=== PATIENT | female | born 1940 | race Caucasian/White ===

== ENCOUNTER 2018-10-04 19:39 | Inpatient (IN) | payer MEDICAID, MEDICARE ==
[~2018-10-04] VITALS: Ht 165.1 cm; Wt 66.2 kg
[~2018-10-04 19:39] MED LIST: BENA20TA9 PO; CIPR-262 PO; DIVA-78 PO; FLUC100T8 PO; INSU100V7 SQ; METF1000 PO; RISP1TAB7 PO; SITA50TA PO
--- NOTE | 2018-10-04 19:57 | NUR ---
pt bib ra. comp of 'having abd pain, and my head feels weird". 911 called by neighbor who stated "pt comp of not feeling herself". bs noted elevated upon arrival. aware. awaiting orders.
[2018-10-04] MEDS ORDERED: IV NS 0.9% 1,000 ML BAG IV ONE ×2 (20:00→22:30)
[2018-10-04 20:13] LABS: BASOPHILS % (AUTO) 0.2 % (0.0-2.0); HEMATOCRIT 34 % (33-45); HEMOGLOBIN 10.9 g/dL (11.5-14.8); LYMPHOCYTES # (AUTO) 0.1 /CMM (0.8-4.8); LYMPHOCYTES % (AUTO) 1.1 % (20.0-44.0); MEAN CORPUSCULAR HGB CONC 32 g/dl (31.0-36.0); MEAN CORPUSCULAR VOLUME 89 fL (82-100); MONOCYTES # (AUTO) 0.3 /CMM (0.1-1.30); MONOCYTES % (AUTO) 4.3 % (2.0-12.0); NEUTROPHILS # (AUTO) 7.2 /CMM (1.8-8.9); NEUTROPHILS % (AUTO) 94.4 % (43.0-81.0); PLATELET COUNT (AUTO) 80 /CMM (150-450); RED BLOOD CELL COUNT(AUTO) 3.81 MIL/uL (4.0-5.2); WHITE BLOOD COUNT (AUTO) 7.6 K/uL (4.3-11.0)
[2018-10-04 20:37] LABS: ALANINE AMINOTRANSFERASE 14 U/L (12-78); ALKALINE PHOSPHATASE 56 U/L (46-116); ASPARTATE AMINOTRANSFERASE 8 U/L (15-37); BILIRUBIN,DIRECT 0.2 mg/dL (0.0-0.2); BILIRUBIN,TOTAL 0.8 mg/dL (0.2-1.0); CALCIUM, SERUM 8.9 mg/dL (8.5-10.1); CARBON DIOXIDE 21 mmol/L (21-32); CHLORIDE 99 mmol/L (98-107); CREATININE 2.1 mg/dL (0.6-1.3); LIPASE 101 U/L (73-393); POTASSIUM 5.8 mmol/L (3.5-5.1); SODIUM SERUM 132 mmol/L (136-145); TOTAL PROTEIN, SERUM 6.2 g/dL (6.4-8.2); UREA NITROGEN, BLOOD 35 mg/dL (7-18)
[2018-10-04 20:41] LABS: GLUCOSE 608 mg/dL (74-106)
--- NOTE | 2018-10-04 21:05 | NUR ---
labs collected and sent for analysis. VSS pt alert and compliant.
[2018-10-04 21:18] LABS: APPEARANCE,URINE Cloudy (CLEAR); BILIRUBIN,URINE SMALL (NEGATIVE); BLOOD, URINE Moderate Ery/uL (NEGATIVE); COLOR,URINE Yellow (YELLOW); KETONES,URINE Trace (NEGATIVE); LEUKOCYTE ESTERASE ,URINE Negative (NEGATIVE); NITRITE, URINE Negative (NEGATIVE); PROTEIN,URINE 30 mg/dl (NEGATIVE); UGLUCOSE 500 MG/DL mg/dL (NEGATIVE); UROBILINOGEN,URINE 0.2 EU/dL (0.2)
--- NOTE | 2018-10-04 21:19 | NUR ---
pt stable at this time. awaiting further orders.
[2018-10-04 21:27] LABS: BAND % (MANUAL) 1 % (0.0-5.0); EOSINOPHILS % (MANUAL) 1 % (0-4); LYMPHOCYTES % (MANUAL) 4 % (16-48); MONOCYTES % (MANUAL) 3 % (0-11.0); NEUTROPHILS % (MANUAL) 91 (42-76)
[2018-10-04 22:01] LABS: BACTERIA,URINE 4+ /HPF (None Seen); SQUAMOUS EPITHELIAL CELL,UR 0-2 /HPF (None Seen)
--- NOTE | 2018-10-04 22:53 | NUR ---
GOPAL 103
--- NOTE | 2018-10-04 23:12 | NUR ---
REPORT GIVEN TO LIZZ GTZ.
--- NOTE | 2018-10-04 23:25 | NUR ---
RECEIVED PT IN NO ACUTE DISTRESS IN BED. PT IS A/O X 4 AND ABLE TO MAKE NEEDS KNOWN. PT IS ON RA AND TOLERATING WELL WITH O2 SAT @ 99%. PT IS ON TELE WITH NSR ON THE MONITOR. PT IS NOT C/O ANY SOB, DIFFICULTY BREATHING OR PAIN AT THIS TIME. PT AMBULATED TO BATHROOM WITH A STEADY GAIT. PT HAS LAC 18G THAT IS CLEAN DRY INTACT AND PATENT WITH NS BOLUS FROM ER. WILL FINISH BOLUS IN UNIT. BED IN LOW LOCK POSITION WITH RIALS UP X 2. CALL LIGHT WITHIN REACH AND ALL SAFETY MEASURES ENSURED AND CARRIED OUT. WILL CONTINUE TO MONITOR PT.
[2018-10-04 23:36] VITALS: BP 147/57
[2018-10-05] VITALS (8 sets, daily range): BP systolic 102–147; BP diastolic 47–66
[2018-10-05] MEDS ORDERED: DEXTROSE 50%-WATER 50 ML DISP.SYRIN IV PRN
[2018-10-05] MEDS ORDERED: ONDANSETRON HCL/PF 4 MG/2 ML VIAL IVP PRN
[2018-10-05] MEDS ORDERED: IV NS 0.9% 500 ML IV ONE
[2018-10-05] MEDS ORDERED: Z GUARD REMEDY 2 OZ OINT TP PRN
[2018-10-05] MEDS ORDERED: ACETAMINOPHEN 325 MG TABLET PO PRN
[2018-10-05] MEDS ORDERED: ZOLPIDEM TARTRATE 5 MG TABLET PO PRN
[2018-10-05] MEDS ORDERED: CEFTRIAXONE 1 G VIAL ONE (00:27)
[2018-10-05] MEDS ORDERED: ALBUMIN 25% 12.5 GM/50 ML BOTTLE IV PRN (00:30)
[2018-10-05] MEDS: CEFTRIAXONE 1 G in IV D5W 50 ML IV SCH (00:52)
[2018-10-05] MEDS: IV NS 0.9% 1,000 ML IV PRN ×2 (01:10→15:12)
[2018-10-05] MEDS: BLOOD SUGAR DIAGNOSTIC 1 EACH STRIP IN SCH ×6 (01:14→20:38)
[2018-10-05] MEDS: INSULIN REGULAR, HUMAN 100 UNIT/ML 3 ML VIAL SQ PRN ×5 (01:15→20:42)
--- NOTE | 2018-10-05 06:34 | NUR ---
PT REMAINS IN NO ACUTE DISTRESS IN BED. PT DID NOT HAVE ANY SIGNIFICANT CHANGE IN CONDITION DURING SHIFT. ALL NEEDS MET, ALL ORDERS CARRIED OUT. WILL ENDORSE CARE TO AM RN FOR CONTINUITY OF CARE.
[2018-10-05 07:11] LABS: BASOPHILS % (AUTO) 0.3 % (0.0-2.0); EOSINOPHILS % (AUTO) 0.3 % (0.0-6.0); HEMATOCRIT 28 % (33-45); HEMOGLOBIN 9.3 g/dL (11.5-14.8); LYMPHOCYTES # (AUTO) 0.1 /CMM (0.8-4.8); LYMPHOCYTES % (AUTO) 1.9 % (20.0-44.0); MEAN CORPUSCULAR HGB CONC 33 g/dl (31.0-36.0); MEAN CORPUSCULAR VOLUME 87 fL (82-100); MONOCYTES # (AUTO) 0.4 /CMM (0.1-1.30); MONOCYTES % (AUTO) 8.2 % (2.0-12.0); NEUTROPHILS # (AUTO) 4.5 /CMM (1.8-8.9); NEUTROPHILS % (AUTO) 89.3 % (43.0-81.0); PLATELET COUNT (AUTO) 61 /CMM (150-450); RED BLOOD CELL COUNT(AUTO) 3.23 MIL/uL (4.0-5.2); WHITE BLOOD COUNT (AUTO) 5.1 K/uL (4.3-11.0)
[2018-10-05 07:30] LABS: ALANINE AMINOTRANSFERASE 14 U/L (12-78); ALBUMIN 2.7 g/dL (3.4-5.0); ALKALINE PHOSPHATASE 42 U/L (46-116); ASPARTATE AMINOTRANSFERASE 12 U/L (15-37); BILIRUBIN,TOTAL 0.4 mg/dL (0.2-1.0); CALCIUM, SERUM 8.3 mg/dL (8.5-10.1); CARBON DIOXIDE 22 mmol/L (21-32); CHLORIDE 105 mmol/L (98-107); CREATININE 1.7 mg/dL (0.6-1.3); GLUCOSE 124 mg/dL (74-106); MAGNESIUM 1.5 mg/dL (1.8-2.4); PHOSPHORUS 3.2 mg/dL (2.5-4.9); POTASSIUM 4.7 mmol/L (3.5-5.1); SODIUM SERUM 139 mmol/L (136-145); TOTAL PROTEIN, SERUM 5.3 g/dL (6.4-8.2); UREA NITROGEN, BLOOD 36 mg/dL (7-18)
[2018-10-05 07:39] LABS: CHOLESTEROL 87 mg/dL (<200); HDL CHOLESTEROL 30 mg/dL (40-60); LDL 47 mg/dL (0-99); THYROID STIMULATING HORMONE 1.078 uIU/mL (0.358-3.74); TRIGLYCERIDES 47 mg/dL (30-150)
[2018-10-05 07:59] LABS: IRON, SERUM 15 ug/dl (50-175); TOTAL IRON BINDING CAPACITY 190 ug/dl (250-450)
--- NOTE | 2018-10-05 08:00 | NUR ---
RN OPENING NOTE: RECEIVED PATIENT IN BED, AWAKE, ALERT AND VERBALLY RESPONSIVE. RESPIRATION EVEN AND UNLABORED SATURATING 96% ON ROOM AIR. HOB ELEVATED. ON CHIEF TECHNICAL OFFICER SR HR= 75. DENIED ANY PAIN. PATIENT WAS OFFERED BREAKFAST, AND ATE 25% OF HER MEAL. WILL CONTINUE TO MONITOR BLOOD SUGAR. BED ALARMED AND LOCKED AT ALL TIMES. BED ON LOWEST POSITION. CALL LIGHT WITHIN REACH. NEEDS ANTICIPATED. PATIENT WILL HAVE AN ULTRASOUND GUIDED PARACENTESIS ANY TIME TODAY PER MD ORDER. PAGED DR. BHAT RE: THE PLATELET LEVEL OF 61.
[2018-10-05] MEDS ORDERED: CLOP75TA15 PO (08:02)
[2018-10-05] MEDS ORDERED: LOSA25TA27 PO (08:02)
[2018-10-05] MEDS ORDERED: ATOR10TA PO (08:02)
[2018-10-05] MEDS ORDERED: REPA1TAB6 PO (08:02)
[2018-10-05 08:55] LABS: ABG BASE EXCESS -5.8 mmol/L; ABG OXYGEN SATURATION 94.5 % (92.0-98.5); ABG PCO2 31.8 mmHg (35.0-45.0); ABG PH 7.382 (7.350-7.450); ABG PO2 75.8 mmHg (75.0-100.0); AaDO2 35.9 mmHg; COHb 0.9 % (0.5-1.5); MetHb 0.7 % (0.0-1.5); SITE, ABG Right Radial; VENT MODE, BG RA
[2018-10-05] MEDS ORDERED: ENOXAPARIN SODIUM 40 MG/0.4 ML DISP.SYRIN SQ SCH (09:00)
[2018-10-05] MEDS ORDERED: ASPIRIN EC 81 MG TABLET.DR PO SCH (09:00)
[2018-10-05] MEDS ORDERED: ENOXAPARIN SODIUM 30 MG/0.3 ML DISP.SYRIN SQ SCH ×2 (09:00)
--- NOTE | 2018-10-05 09:00 | NUR ---
RN NOTE: DR. HUYNH MADE AWARE OF THE PATIENT'S ABG RESULT. NO NEW ORDER GIVEN.
--- NOTE | 2018-10-05 09:27 | NUR ---
RN NOTE: RECEIVED A TELEPHONE ORDER FROM DR. BHAT RE: THE 1 UNIT OF PLATELET TRANSFUSION PRIOR TO THE US GUIDED PARACENTESIS. ORDER, NOTED AND CARRIED OUT. PATIENT MADE AWARE.
[2018-10-05 09:42] LABS: BAND % (MANUAL) 1 % (0.0-5.0); LYMPHOCYTES % (MANUAL) 2 % (16-48); MONOCYTES % (MANUAL) 4 % (0-11.0); NEUTROPHILS % (MANUAL) 93 (42-76)
[2018-10-05] MEDS ORDERED: Magnesium 1GM/D5W 100ML PREMIX 100 ML IV SCH (10:30)
[2018-10-05] MEDS: Magnesium 1GM/D5W 100ML PREMIX 100 ML IV SCH ×3 (12:35→18:59)
[2018-10-05] MEDS: FERROUS SULFATE (325 MG) 325 MG/TAB TABLET PO SCH ×2 (12:35→17:31)
--- NOTE | 2018-10-05 16:00 | NUR ---
RN NOTE: PATIENT'S US GUIDED PARACENTESIS WAS DONE AND THE RADIOLOGIST REMOVED 2360 ML OF DARK REDDISH COLOR OF ABDOMINAL FLUID. LABELED AND SENT TO LAB FOR CYTOLOGY REPORT.
[2018-10-05] MEDS: PANTOPRAZOLE 40 MG VIAL IV SCH (19:06)
--- NOTE | 2018-10-05 19:13 | NUR ---
RN CLOSING NOTE PATIENT IN BED, AWAKE, ALERT AND VERBALLY RESPONSIVE. RESPIRATION EVEN AND UNLABORED SATURATING 96% ON RA. HOB ELEVATED. ON CLINICAL PHARMACY COORDINATOR SR HR=75. DENIED ANY PAIN. PATIENT ATE DINNER AND ATE 100% OF HER MEAL. WILL CONTINUE TO MONITOR BLOOD SUGAR. IV INTACT AND SALINE FLUSHED. RUNNING 0.9 NS 100ML/HR. MG ORDERED BY MD CARRIED OUT. BED ALARMED AND LOCKED AT ALL TIMES. BED ON LOWEST POSITION. CALL LIGHT WITHIN REACH. NEEDS ANTICIPATED. REPORT GIVEN TO NOC SHIFT.
--- NOTE | 2018-10-05 19:38 | NUR ---
RN NOTE: CLARIFIED THE ORDER TO SUZANNA ALCAZAR NP FOR CT CHEST ABD/PELVIS WITH CONTRAST AND SHE WAS INFORMED ABOUT THE PATIENT'S BUN/CREATININE LEVEL. PER SUZANNA, CHANGE THE ORDER FOR TOMORROW AFTER THE AM LABS AND CALL HER FOR RESULTS. PM SHIFT NURSE MADE AWARE AND WAS GIVEN BEDSIDE REPORT FOR CONTINUITY OF CARE.
--- NOTE | 2018-10-05 19:41 | NUR ---
RN NOTE. RECEIVED THE PT REST ON THE JESS. AWAKE, ALERT, FOLLOW COMMANDS. THREAD ROLLER SHOWING NSR. OXYGEN 2L VIA NASAL CANNULA, SAT 94%. NO ACUTE DISTRESS NOTED. IV LT AC 18G. IVF NS 100ML/H. ABDOMEN DISTENDED. HOB ELEVATED. WILL CONTINUE TO MONITOR VITALS.
[2018-10-05] MEDS: ATORVASTATIN 10 MG TABLET PO SCH (21:48)
[2018-10-06] VITALS (7 sets, daily range): BP systolic 102–152; BP diastolic 36–84
[2018-10-06] MEDS: HYDROCODONE/APAP 5/325MG 1 EACH TABLET PO PRN ×2 (00:35→01:44)
[2018-10-06] MEDS ORDERED: CEFTRIAXONE 1 G VIAL ONE (00:35)
[2018-10-06] MEDS: CEFTRIAXONE 1 G in IV D5W 50 ML IV SCH (00:36)
[2018-10-06] MEDS: INSULIN REGULAR, HUMAN 100 UNIT/ML 3 ML VIAL SQ PRN ×4 (01:17→17:18)
[2018-10-06] MEDS: BLOOD SUGAR DIAGNOSTIC 1 EACH STRIP IN SCH ×6 (01:18→22:16)
--- NOTE | 2018-10-06 03:07 | NUR ---
RN NOTE. AM CARE, ORAL CARE, BED BATH GIVEN. LINEN CHANGED, REMAINING SAME OXYGEN TOLERATED WELL. SAT 98%, NO ACUTE DISTRESS NOTED. MOVIE SHOT CAMERAMAN SHOWING NSR. IV LT AC 18G. IVF NS 100ML/H. HOB ELEVATED. PT SLEPT WELL DURING SHIFT. AFEBRILE. WILL CONTINUE TO MONITOR VITALS.
[2018-10-06 06:35] LABS: BASOPHILS % (AUTO) 0.3 % (0.0-2.0); EOSINOPHILS % (AUTO) 0.6 % (0.0-6.0); HEMATOCRIT 26 % (33-45); HEMOGLOBIN 8.5 g/dL (11.5-14.8); LYMPHOCYTES # (AUTO) 0.1 /CMM (0.8-4.8); LYMPHOCYTES % (AUTO) 1.4 % (20.0-44.0); MEAN CORPUSCULAR HGB CONC 33 g/dl (31.0-36.0); MEAN CORPUSCULAR VOLUME 86 fL (82-100); MONOCYTES # (AUTO) 0.4 /CMM (0.1-1.30); MONOCYTES % (AUTO) 7.2 % (2.0-12.0); NEUTROPHILS % (AUTO) 90.5 % (43.0-81.0); PLATELET COUNT (AUTO) 56 /CMM (150-450); RED BLOOD CELL COUNT(AUTO) 2.97 MIL/uL (4.0-5.2); WHITE BLOOD COUNT (AUTO) 5.5 K/uL (4.3-11.0)
[2018-10-06 06:47] LABS: ALANINE AMINOTRANSFERASE 13 U/L (12-78); ALBUMIN 2.5 g/dL (3.4-5.0); ALKALINE PHOSPHATASE 38 U/L (46-116); ASPARTATE AMINOTRANSFERASE 15 U/L (15-37); BILIRUBIN,TOTAL 0.4 mg/dL (0.2-1.0); CALCIUM, SERUM 8.1 mg/dL (8.5-10.1); CARBON DIOXIDE 22 mmol/L (21-32); CHLORIDE 104 mmol/L (98-107); CREATININE 1.5 mg/dL (0.6-1.3); GLUCOSE 75 mg/dL (74-106); MAGNESIUM 2.3 mg/dL (1.8-2.4); PHOSPHORUS 4.1 mg/dL (2.5-4.9); POTASSIUM 4.5 mmol/L (3.5-5.1); SODIUM SERUM 135 mmol/L (136-145); TOTAL PROTEIN, SERUM 4.9 g/dL (6.4-8.2); UREA NITROGEN, BLOOD 38 mg/dL (7-18)
[2018-10-06 06:48] LABS: CREATINE KINASE, TOTAL 77 U/L (26-192)
--- NOTE | 2018-10-06 07:30 | NUR ---
RN NOTE RECEIVED PATIENT AWAKE AND ALERT. CONFUSED AT TIMES. PATIENT ON 2L O2 NC SATING 98%. ON TELE MONITOR SR HR 75. SKIN INTACT. ATE BREAKFAST 100%. BED LOCKED AND ON LOWEST POSITION. CALL LIGHT WITHIN REACH. WILL CONT TO MONITOR.
[2018-10-06 08:09] LABS: CANCER AG, 125 290.7 U/mL (0.0-38.1); CANCER AG, 15-3 40.8 U/mL (0.0-25.0)
[2018-10-06] MEDS: FERROUS SULFATE (325 MG) 325 MG/TAB TABLET PO SCH ×2 (08:40→17:17)
--- NOTE | 2018-10-06 12:10 | NUR ---
RN NOTE: COLLECTED URINE SPECIMEN FROM THE PATIENT AND CALLED LAB THAT SPECIMEN WAS READY FOR PICK-UP IN THE SPECIMEN REFRIGERATOR. PATIENT HAS NO BOWEL MOVEMENT AT THIS TIME, BUT REMINDED HER THAT IF SHE NEEDED TO GO TO THE BATHROOM AGAIN AND NEEDED TO MOVE HER BOWEL, SHE NEEDED TO INFORM THE NURSE IN ORDER TO COLLECT THE SPECIMEN. PATIENT UNDERSTOOD AND AGREED.
[2018-10-06 14:43] LABS: APPEARANCE,URINE CLEAR (CLEAR); BILIRUBIN,URINE NEGATIVE (NEGATIVE); BLOOD, URINE TRACE-INTA Ery/uL (NEGATIVE); COLOR,URINE YELLOW (YELLOW); KETONES,URINE NEGATIVE (NEGATIVE); LEUKOCYTE ESTERASE ,URINE NEGATIVE (NEGATIVE); NITRITE, URINE NEGATIVE (NEGATIVE); PH,URINE 5.5 (5.0-8.0); PROTEIN,URINE NEGATIVE (NEGATIVE); UGLUCOSE 2+ mg/dL (NEGATIVE); UROBILINOGEN,URINE 0.2 EU/dL (0.2)
[2018-10-06 15:07] LABS: CREATININE, URINE 33.2 MG/DL (30.0-125.0); URINE TOTAL PROTEIN 27.3 mg/dL (0-11.9)
[2018-10-06 15:17] LABS: BACTERIA,URINE None seen /HPF (None Seen); RBC,URINE 0-2 /HPF (0-2); SQUAMOUS EPITHELIAL CELL,UR Rare /HPF (None Seen); WBC,URINE 0-2 /HPF (0-3)
[2018-10-06 16:04] LABS: EOSINOPHIL,URINE None Seen
--- NOTE | 2018-10-06 16:53 | NUR ---
RN NOTE: SPOKE WITH JETT FROM RADIOLOGY AND MADE HIM AWARE THAT ACCORDING TO SUZANNA ALCAZAR, SECONDARY SCHOOL TEACHER SHE AGREED FOR THE PATIENT TO HAVE THE CT CHEST ABD/PELVIS WITH IV CONTRAST ONLY. PATIENT SIGNED THE INFORMED CONSENT AND AGREED TO RECEIVE THE TEST. DR. KAPADIA MADE AWARE.
[2018-10-06] MEDS ORDERED: IV NS 0.9% 250 ML IV ONE (17:05)
[2018-10-06] MEDS ORDERED: IOHEXOL-300 100 ML VIAL IV ONE (17:05)
[2018-10-06] MEDS ORDERED: CT SWABBABLE VALVE TRANS SET 1 EA INFUS.SET MC ONE (17:05)
--- NOTE | 2018-10-06 19:12 | NUR ---
RN CLOSING NOTE PATIENT IN BED, AWAKE, ALERT AND VERBALLY RESPONSIVE. RESPIRATION EVEN AND UNLABORED SATURATING 96% ON RA. HOB ELEVATED. DENIED ANY PAIN. PATIENT ATE DINNER AND ATE 100% OF HER MEAL. WILL RELAY TO [facility] TO CONTINUE TO MONITOR BLOOD SUGAR. IV INTACT AND SALINE FLUSHED. NOW ON RIGHT FOREARM. RUNNING 0.9 NS 100ML/HR. BED ALARMED AND LOCKED AT ALL TIMES. BED ON LOWEST POSITION. CALL LIGHT WITHIN REACH. NEEDS ANTICIPATED. REPORT GIVEN TO BIN VERAS. Addendum: 10/06/18 at 1921 by YAN SORTO RN STOOL SAMPLE STILL PENDING. WILL RELAY TO BIN VERAS
--- NOTE | 2018-10-06 19:30 | NUR ---
MS1/RN RECEIVE PATIENT AWAKE, ALERT, ORIENTED, CALM AND COMFORTABLE, NO C/O PAIN, NO DISTRESS NOTED, CALL LIGHT IN REACH. WILL MONITOR.
[2018-10-06] MEDS: PANTOPRAZOLE 40 MG VIAL IV SCH (20:30)
--- NOTE | 2018-10-06 21:58 | NUR ---
MS1/RN STOOL FOR OB COLLECTED AND SENT TO LAB.
[2018-10-06] MEDS: ATORVASTATIN 10 MG TABLET PO SCH (22:06)
[2018-10-06 23:51] LABS: OCCULT BLOOD STOOL POSITIVE (NEGATIVE)
[2018-10-07] MEDS: CEFTRIAXONE 1 G in IV D5W 50 ML IV SCH ×2 (00:21→12:08)
[2018-10-07] MEDS: BLOOD SUGAR DIAGNOSTIC 1 EACH STRIP IN SCH ×7 (00:51→20:32)
[2018-10-07 04:00] VITALS: BP 126/55
[2018-10-07] MEDS: INSULIN REGULAR, HUMAN 100 UNIT/ML 3 ML VIAL SQ PRN ×3 (05:11→20:34)
--- NOTE | 2018-10-07 06:11 | NUR ---
MS/RN PATIENT IS STILL SLEEPING AT THIS TIME, AROUSABLE, APPEAR COMFORTABLE, NO SIGNS OF DISTRESS NOTED, ALL NEEDS ATTENDED AT THIS TIME. WILL CONTINUE TO MONITOR.
[2018-10-07 06:35] LABS: CALCIUM, SERUM 7.6 mg/dL (8.5-10.1); CARBON DIOXIDE 23 mmol/L (21-32); CHLORIDE 101 mmol/L (98-107); CREATININE 1.5 mg/dL (0.6-1.3); GLUCOSE 236 mg/dL (74-106); PHOSPHORUS 4.4 mg/dL (2.5-4.9); POTASSIUM 5.3 mmol/L (3.5-5.1); SODIUM SERUM 132 mmol/L (136-145); UREA NITROGEN, BLOOD 39 mg/dL (7-18)
[2018-10-07 06:37] LABS: BASOPHILS % (AUTO) 0.5 % (0.0-2.0); EOSINOPHILS % (AUTO) 1.8 % (0.0-6.0); HEMATOCRIT 26 % (33-45); HEMOGLOBIN 8.7 g/dL (11.5-14.8); LYMPHOCYTES # (AUTO) 0.1 /CMM (0.8-4.8); LYMPHOCYTES % (AUTO) 2.9 % (20.0-44.0); MEAN CORPUSCULAR HGB CONC 34 g/dl (31.0-36.0); MEAN CORPUSCULAR VOLUME 86 fL (82-100); MONOCYTES # (AUTO) 0.3 /CMM (0.1-1.30); MONOCYTES % (AUTO) 6.8 % (2.0-12.0); NEUTROPHILS # (AUTO) 4.3 /CMM (1.8-8.9); WHITE BLOOD COUNT (AUTO) 4.9 K/uL (4.3-11.0)
[2018-10-07 07:06] LABS: PLATELET COUNT (AUTO) 32 /CMM (150-450)
[2018-10-07 07:07] LABS: LYMPHOCYTES % (MANUAL) 5 % (16-48); MONOCYTES % (MANUAL) 4 % (0-11.0); NEUTROPHILS % (MANUAL) 91 (42-76)
[2018-10-07 08:00] VITALS: BP 107/83
[2018-10-07] MEDS: FERROUS SULFATE (325 MG) 325 MG/TAB TABLET PO SCH ×2 (09:00→16:11)
[2018-10-07 11:18] LABS: *SPE A/G RATIO 1.4 (0.7-1.7); *SPE ALBUMIN 2.7 g/dL (2.9-4.4); *SPE ALPHA-1-GLOBULIN 0.3 g/dL (0.0-0.4); *SPE ALPHA-2-GLOBULIN 0.8 g/dL (0.4-1.0); *SPE BETA GLOBULIN 0.6 g/dL (0.7-1.3); *SPE M-SPIKE Not Observed g/dL (Not Observed); *SPEGAMMA GLOBULIN 0.3 g/dL (0.4-1.8)
[2018-10-07] MEDS: PANTOPRAZOLE 40 MG VIAL IV SCH (12:07)
[2018-10-07 13:11] LABS: PTH, INTACT 48 pg/mL (15-65)
[2018-10-07 16:00] VITALS: BP 110/85
[2018-10-07] MEDS ORDERED: MAGNESIUM CITRATE 296 ML BOTTLE PO ONE (16:00)
[2018-10-07] MEDS ORDERED: PEG 3350/NA SULF,BICARB,CL/KCL 4,000 ML BOTTLE PO ONE (16:00)
[2018-10-07] MEDS ORDERED: NA PHOS,M-B/NA PHOS,DI-BA 1 EA ENEMA RC PRN (16:00)
[2018-10-07] MEDS: SUCRALFATE 1 G/10 ML UDC GT SCH ×2 (18:01→21:24)
[2018-10-07] MEDS: IV NS 0.9% 1,000 ML IV PRN (18:02)
--- NOTE | 2018-10-07 19:59 | NUR ---
RN MS OPENING NOTES RECEIVED PT IN BED AWAKE ALERT ORIENTED X2-3 BREATHING EVEN AND UNLABORED ON RA. NO COMPLAINT OF PAIN OR DISCOMFORT AT THIS TIME. R MIDLINE 18G WITH NS @100ML/HR. BED IN LOWEST LOCKED POSITION, CALL LIGHT WITHIN REACH AT ALL TIMES, WILL CONTINUE TO MONITOR.
[2018-10-07] MEDS: ATORVASTATIN 10 MG TABLET PO SCH (21:24)
[2018-10-08] VITALS: BP 117/50
[2018-10-08] MEDS: BLOOD SUGAR DIAGNOSTIC 1 EACH STRIP IN SCH ×6 (01:01→21:44)
--- NOTE | 2018-10-08 06:43 | NUR ---
RN MS CLOSING NOTES PT REMAINS IN BED AWAKE ALERT ORIENTED X2-3 BREATHING EVEN AND UNLABORED ON RA. NO COMPLAINT OF PAIN OR DISCOMFORT AT THIS TIME. R MIDLINE 18G WITH NS @100ML/HR. BG AT 0500- 54, ORANGE JUICE GIVEN,RECHECK- 74. BED IN LOWEST LOCKED POSITION, CALL LIGHT WITHIN REACH AT ALL TIMES, WILL ENDORSE TO DA NURSE FOR PATITO.
[2018-10-08 07:00] LABS: CALCIUM, SERUM 7.9 mg/dL (8.5-10.1); CARBON DIOXIDE 24 mmol/L (21-32); CHLORIDE 104 mmol/L (98-107); CREATININE 1.7 mg/dL (0.6-1.3); GLUCOSE 77 mg/dL (74-106); POTASSIUM 4.5 mmol/L (3.5-5.1); SODIUM SERUM 138 mmol/L (136-145); UREA NITROGEN, BLOOD 40 mg/dL (7-18)
[2018-10-08 07:04] LABS: BASOPHILS % (AUTO) 0.3 % (0.0-2.0); EOSINOPHILS % (AUTO) 0.3 % (0.0-6.0); HEMATOCRIT 27 % (33-45); HEMOGLOBIN 8.9 g/dL (11.5-14.8); LYMPHOCYTES # (AUTO) 0.1 /CMM (0.8-4.8); LYMPHOCYTES % (AUTO) 1.3 % (20.0-44.0); MEAN CORPUSCULAR HGB CONC 33 g/dl (31.0-36.0); MEAN CORPUSCULAR VOLUME 87 fL (82-100); MONOCYTES # (AUTO) 0.3 /CMM (0.1-1.30); NEUTROPHILS % (AUTO) 92.1 % (43.0-81.0); RED BLOOD CELL COUNT(AUTO) 3.08 MIL/uL (4.0-5.2); WHITE BLOOD COUNT (AUTO) 5.5 K/uL (4.3-11.0)
[2018-10-08 07:19] LABS: PLATELET COUNT (AUTO) 31 /CMM (150-450)
[2018-10-08 08:00] VITALS: BP 152/68
--- NOTE | 2018-10-08 08:00 | NUR ---
MS RN NOTES SEEPING COMFORTABLY BUR EASILY TO AROUSAVBLE ALERT ORIENTED X2-3 BREATHING EVEN AND UNLABORED ON RA. NO COMPLAINT OF PAIN OR DISCOMFORT AT THIS TIME. R MIDLINE 18G WITH NS @100ML/HR. BED IN LOWEST LOCKED POSITION, CALL LIGHT WITHIN REACH AT ALL TIMES, WILL CONT TO MONITOR CLOSELY ,BED ALARM IN , BOTH LEGS WITH DVT PUMPS IN PLACE
[2018-10-08] MEDS: SUCRALFATE 1 G/10 ML UDC GT SCH ×4 (08:31→21:34)
[2018-10-08] MEDS: FERROUS SULFATE (325 MG) 325 MG/TAB TABLET PO SCH ×2 (08:31→16:18)
[2018-10-08 09:01] LABS: EOSINOPHILS % (MANUAL) 1 % (0-4); LYMPHOCYTES % (MANUAL) 3 % (16-48); MONOCYTES % (MANUAL) 4 % (0-11.0); NEUTROPHILS % (MANUAL) 92 (42-76)
--- NOTE | 2018-10-08 10:56 | NUR ---
MS RN NOTE PER DR KAPADIA NO NEW ORDER ABOUT PLATELETS 31 .ALSO SPOKE WITH SUZANNA AMEZQUITA TO START GOLYTELY FOR COLONOSCOPY. SPOKE WITH DR ANUJ VALLADARES PLATELTS 31 STATED WILL SEE PATIENT SOON NO NEW ORDER AT THIS TIME
[2018-10-08] MEDS ORDERED: PEG 3350/NA SULF,BICARB,CL/KCL 4,000 ML BOTTLE PO ONE (11:00)
--- NOTE | 2018-10-08 12:12 | NUR ---
MS RN NOTE STARTED TO GIVE GOLYTELY, BLOOD SUGAR 103 MG\DL, NO COVERAGE WITH INSULIN
--- NOTE | 2018-10-08 14:24 | NUR ---
MS RN NOTE AMBULATED WITH PT USING A W\C, NOT IN DISTRESS
[2018-10-08 16:00] VITALS: BP_SYST 125; BP_SYST 151; BP_DIAS 58; BP_DIAS 68
--- NOTE | 2018-10-08 17:00 | NUR ---
MS RN NOTE SEEN BY SUZANNA GTZ THIMBLE PRESS OPERATOR GI AWARE THAT PATIENT HAVING NOW GOLYTELY, HAVING LOOSE STOOL BUT NOT CLEAR YET
[2018-10-08] MEDS: IV NS 0.9% 1,000 ML IV PRN (17:40)
[2018-10-08] MEDS: INSULIN REGULAR, HUMAN 100 UNIT/ML 3 ML VIAL SQ PRN ×2 (17:48→21:43)
[2018-10-08] MEDS: PANTOPRAZOLE 40 MG VIAL IV SCH (18:05)
--- NOTE | 2018-10-08 18:06 | NUR ---
MS RN NOTE PER SUZANNA RN WANIGAN CLERK GI TRANSFUSE 1 UNIT PLATELETS ALSO NOTIFIED TO HER THAT PATIENT FEELS NAUSEA DONT WANT TO TAKE GOLYTELY NO MORE TRYING TO ENCOURAGE TO DRINK
--- NOTE | 2018-10-08 19:03 | NUR ---
RADIO INSTALLER AUTOMOBILE NOTE NOTED RASHES ON BOTH ELBOWS, LT LOWER LEG AND THIGH .LOWER BACK ,SUZANNA GTZ STORAGE CENTER MANAGER MADE ROUNDS , AWARE OF IT, NO NEW ORDERS GIVEN AT THIS TIME
[2018-10-08 20:00] VITALS: BP 125/67
--- NOTE | 2018-10-08 20:08 | NUR ---
RN OPENING NOTES RECEIVED REPORT FROM MITRA GTZ. PATIENT A/A/O X3, ABLE TO MAKE NEEDS KNOWN. BREATHING EVEN & UNLABORED, TOLERATING ROOM AIR. DENIES ANY SOB OR DIFFICULTY BREATHING. RADIAL PULSES PRESENT. RIGHT UPPER ARM MIDLINE INTACT & PATENT W/ DRESSING CDI & IVF INFUSING WELL @ 100 ML/HR. DENIES ANY PAIN OR DISCOMFORT @ THIS TIME. SAFETY MEASURES IN PLACE W/ SIDE RAILS UP & BED ALARM ON. INSTRUCTED TO USE CALL LIGHT FOR ASSISTANCE. WILL CONTINUE TO MONITOR.
[2018-10-08] MEDS: ATORVASTATIN 10 MG TABLET PO SCH (21:34)
--- NOTE | 2018-10-08 22:40 | NUR ---
RN NOTES ONE UNIT PLATELET TRANSFUSION STARTED. CHECKED & VERIFIED W/ 2ND RN. WILL MONITOR FOR ADVERSE REACTIONS.
[2018-10-08] MEDS: CEFTRIAXONE 1 G in IV D5W 50 ML IV SCH (23:51)
[2018-10-09 01:07] VITALS: BP 142/80
--- NOTE | 2018-10-09 01:10 | NUR ---
RN NOTES ONE UNIT PLATELET TRANSFUSION ENDED. VSS. NO ADVERSE REACTIONS NOTED.
[2018-10-09] MEDS: INSULIN REGULAR, HUMAN 100 UNIT/ML 3 ML VIAL SQ PRN ×3 (01:20→17:17)
[2018-10-09] MEDS: BLOOD SUGAR DIAGNOSTIC 1 EACH STRIP IN SCH ×6 (01:20→21:00)
[2018-10-09 04:00] VITALS: BP 125/67
[2018-10-09 06:33] LABS: BASOPHILS % (AUTO) 0.3 % (0.0-2.0); EOSINOPHILS % (AUTO) 0.7 % (0.0-6.0); HEMATOCRIT 22 % (33-45); HEMOGLOBIN 7.5 g/dL (11.5-14.8); LYMPHOCYTES # (AUTO) 0.1 /CMM (0.8-4.8); LYMPHOCYTES % (AUTO) 1.6 % (20.0-44.0); MEAN CORPUSCULAR HGB CONC 33 g/dl (31.0-36.0); MEAN CORPUSCULAR VOLUME 85 fL (82-100); MONOCYTES # (AUTO) 0.5 /CMM (0.1-1.30); MONOCYTES % (AUTO) 9.8 % (2.0-12.0); NEUTROPHILS # (AUTO) 4.5 /CMM (1.8-8.9); NEUTROPHILS % (AUTO) 87.6 % (43.0-81.0); RED BLOOD CELL COUNT(AUTO) 2.63 MIL/uL (4.0-5.2); WHITE BLOOD COUNT (AUTO) 5.1 K/uL (4.3-11.0)
[2018-10-09 06:44] LABS: ALANINE AMINOTRANSFERASE 14 U/L (12-78); ALBUMIN 2.4 g/dL (3.4-5.0); ALKALINE PHOSPHATASE 41 U/L (46-116); ASPARTATE AMINOTRANSFERASE 10 U/L (15-37); BILIRUBIN,TOTAL 0.4 mg/dL (0.2-1.0); CALCIUM, SERUM 7.5 mg/dL (8.5-10.1); CARBON DIOXIDE 24 mmol/L (21-32); CHLORIDE 105 mmol/L (98-107); CREATININE 1.5 mg/dL (0.6-1.3); GLUCOSE 140 mg/dL (74-106); PHOSPHORUS 4.1 mg/dL (2.5-4.9); POTASSIUM 4.2 mmol/L (3.5-5.1); SODIUM SERUM 138 mmol/L (136-145); TOTAL PROTEIN, SERUM 4.8 g/dL (6.4-8.2); UREA NITROGEN, BLOOD 33 mg/dL (7-18)
[2018-10-09 06:50] LABS: PLATELET COUNT (AUTO) 45 /CMM (150-450)
--- NOTE | 2018-10-09 07:10 | NUR ---
CORK FLOOR INSTALLER OPENING NOTES RECEIVED BEDSIDE REPORT FROM NOC. PATIENT SLEEPING NO SIGNS OR SYMPTOMS OF RESPIRTATORY DISTRESS ON 2 LTRS NASAL CANNULA. NO ACUTE PAIN NOTED. ABLE TO AROUSE WITH TOUCH AND VOICE. PREP FOR EGD COMPLETE PER NOC. LAST STOOL CLEAR IN COLOR. JANE MIDLINE RUNNING NS @ 75 ML/HR. SAFETY PRECAUTIONS IN PLACE BED IN LOW POSITION CALL LIGHT WITHIN REACH NPO TILL PROCEDURE. WILL CONT TO MONITOR
[2018-10-09] MEDS: SUCRALFATE 1 G/10 ML UDC GT SCH ×4 (07:30→21:11)
[2018-10-09 08:00] VITALS: BP 113/52
[2018-10-09 08:35] LABS: BAND % (MANUAL) 2 % (0.0-5.0); LYMPHOCYTES % (MANUAL) 1 % (16-48); MONOCYTES % (MANUAL) 6 % (0-11.0); NEUTROPHILS % (MANUAL) 91 (42-76)
[2018-10-09] MEDS: IV NS 0.9% 1,000 ML IV PRN (09:57)
--- NOTE | 2018-10-09 11:05 | NUR ---
TEXTED DR. ROSALES FOR MRI APPROVAL.
--- NOTE | 2018-10-09 11:06 | NUR ---
ON HOLD DR. ROSALES WILL LET US KNOW.
--- NOTE | 2018-10-09 11:07 | NUR ---
MRI ABDOMEN CX PER DR. ROSALES.
--- NOTE | 2018-10-09 11:07 | NUR ---
RN NOTE: RECEIVED A PHONE CALL FROM DR. KAPADIA AND HE ORDERED TO CANCEL THE MRI ABD/PELVIS WITHOUT CONTRAST. PATIENT CAN HAVE THE TEST AN OUTPATIENT. ORDER, NOTED AND CARRIED OUT. PRIMARY NURSE MADE AWARE.
[2018-10-09] MEDS ORDERED: CEPH250S PO (11:30)
[2018-10-09 12:00] VITALS: BP 126/78
--- NOTE | 2018-10-09 12:22 | NUR ---
RN MS NOTES PATIENT LEFT VIA BED FOR EGD
--- NOTE | 2018-10-09 13:46 | NUR ---
TN MS NOTES REPORT FROM SURGERY PATIENT RETURNING TO UNIT POST EDG
[2018-10-09] MEDS ORDERED: SOD FERRIC GLUC 125 MG in IV NS 0.9% 100 ML IV SCH (14:00)
--- NOTE | 2018-10-09 14:07 | NUR ---
RN MS NOTES PATIENT RETURNED FROM EGD. AWAKE AND ALERT NO C/O PAIN VITALS 97.8 HR 71 RR 18 BP 139/57 O2 97%. WILL RESUME ORDERS
[2018-10-09 14:14] VITALS: BP 139/57
[2018-10-09 16:00] VITALS: BP_SYST 111; BP_SYST 114; BP_DIAS 48
[2018-10-09] MEDS: PANTOPRAZOLE 40 MG VIAL IV SCH (17:13)
--- NOTE | 2018-10-09 19:03 | NUR ---
RN MS CLOSING NOTES REPORT GIVEN TO NOC. PATIENT AWAITING DISCHARGE HOME WITH [facility]. ALL CONSULTATIONS FOLLOWED UP. DR MO CALLED ABHIJEET TO SCHEDULE FOLLOW UP APPOINTMENT. PATIENT ASLEEP IVF RUNNING NS AT 100ML/HR IN MIDLINE. DISCHARGE ORDERS SUBMITTED WILL ENDORSE TO NOC
--- NOTE | 2018-10-09 19:54 | NUR ---
RN MS INITIAL NOTES RECEIVE PATIENT AWAITING DISCHARGE HOME WITH [facility]. ALL CONSULTATIONS FOLLOWED UP. DR MO CALLED ABHIJEET TO SCHEDULE FOLLOW UP APPOINTMENT. PATIENT ASLEEP IVF RUNNING NS AT 100ML/HR IN MIDLINE, MIDLINE TO BE REMOVED BEFORE DISCHARGE ,AWAITING ENGINEERING PSYCHOLOGIST.
--- NOTE | 2018-10-09 20:45 | NUR ---
2100 ACU-CHECK AND MED'S NOT GIVEN PT DC TO HOME.
--- NOTE | 2018-10-09 20:45 | NUR ---
PT DC NOTE PT DC TO HOME, PICKED UP BY DPOA, WITH PRIVATE TRANSPOTATION, DC INSTRUCTIONS PROVIDED, RETURN DEMOSTRATION PER DPOA. PT STABLE ABLE TO AMBULATE TO BATHROOM BEFORE DC, VS STABLE , ON R/A WELL TOLERATED, CLEAN AND DRY, MIDLINE DC, SITE INTACT. PAPER WORK PROVIDED WITH F/U INSTRUCTION WITH DR MO'S OFFICE.
[2018-10-19] MEDS ORDERED: FERR325T23 PO (10:20)
== END 2018-10-09 21:55 | disposition home health service (06) | DRG 530 ==
LOC: ER 19:40 → TELE-TD 22:53 → MEDSG1 10-06 09:50
PROVIDERS: ADMIT Nurse Practitioner Acute Care
PROC: 30233R1 Transfusion of Nonautologous Platelets into Peripheral Vein, Percutaneous Approach (ICD-10-PCS; principal; 2018-10-05)
PROC: 0W9G3ZZ Drainage of Peritoneal Cavity, Percutaneous Approach (ICD-10-PCS; principal; 2018-10-05)
PROC: 0DB68ZX Excision of Stomach, Via Natural or Artificial Opening Endoscopic, Diagnostic (ICD-10-PCS; 2018-10-09)
PROC: 0DJD8ZZ Inspection of Lower Intestinal Tract, Via Natural or Artificial Opening Endoscopic (ICD-10-PCS; 2018-10-09)
DX: C56.9 Malignant neoplasm of unspecified ovary (principal); N17.0 Acute kidney failure with tubular necrosis; E11.01 Type 2 diabetes mellitus with hyperosmolarity with coma; C78.6 Secondary malignant neoplasm of retroperitoneum and peritoneum; E87.2 Acidosis; D69.6 Thrombocytopenia, unspecified; E88.09 Other disorders of plasma-protein metabolism, not elsewhere classified; E11.65 Type 2 diabetes mellitus with hyperglycemia; C55 Malignant neoplasm of uterus, part unspecified; E87.5 Hyperkalemia; E87.1 Hypo-osmolality and hyponatremia; R18.8 Other ascites; F03.90 Unspecified dementia, unspecified severity, without behavioral disturbance, psychotic disturbance, mood disturbance, and anxiety; N39.0 Urinary tract infection, site not specified; B96.20 Unspecified Escherichia coli [E. coli] as the cause of diseases classified elsewhere; I10 Essential (primary) hypertension; Z87.440 Personal history of urinary (tract) infections; D50.9 Iron deficiency anemia, unspecified; K44.9 Diaphragmatic hernia without obstruction or gangrene; K29.70 Gastritis, unspecified, without bleeding; K57.30 Diverticulosis of large intestine without perforation or abscess without bleeding
CPT/HCPCS: 36415; 36569; 36600; 71045-TC; 71260-TC; 76856-TC; 76942-TC; 80048-TC; 80053-TC; 80061-TC; 80076-TC; 81000-TC; 82105; 82140-TC; 82272-TC; 82378; 82550-TC; 82570-TC; 82728-TC; 82803-TC; 82962-TC; 83540-TC; 83605-TC; 83690-TC; 83735-TC; 83970; 84100-TC; 84155; 84155-TC; 84165; 84300-TC; 84443-TC; 84484-TC; 85025-TC; 85045-TC; 85652-TC; 85730-TC; 86300; 86301; 86304; 86850-TC; 87040-TC; 87070-TC; 87081-TC; 87086-TC; 87186-TC; 88305-TC; 88312-TC; 88313-TC; 88342; 93307-TC; 97110-TC; 97116-TC; 97530-TC; A6402; C9113; G0378; J0696; J1815; J2704; J2916; J3475; J3490; J7030; J7040; J7042; J7050; J7060; P9016-BL; P9034-BL; Q9967

== ENCOUNTER 2018-10-12 22:37 | Inpatient (IN) | payer MEDICAID, MEDICARE ==
[~2018-10-12] VITALS: Ht 165.1 cm; Wt 59.9 kg
[~2018-10-12 22:37] MED LIST changes: +ATOR10TA PO; -BENA20TA9 PO; +CEPH250S PO; -CIPR-262 PO; +CLOP75TA15 PO; -DIVA-78 PO; -FLUC100T8 PO; +LOSA25TA27 PO; +REPA1TAB6 PO; -RISP1TAB7 PO; -SITA50TA PO
--- NOTE | 2018-10-12 22:40 | NUR ---
PT BIB BY CAREGIVER C/C OF GEN WEAKNESS LOWER EXTREM EDEMA. PT RECENTLY D/C FROM THIS HOSPITAL. PT ON MONITOR WITH CAREGIVER AT BEDSIDE. WILL CONTINUE TO MONITOR.
[2018-10-12] MEDS ORDERED: IV NS 0.9% 500 ML BAG IV ONE (23:30)
[2018-10-12] MEDS ORDERED: PANTOPRAZOLE 40 MG VIAL IV ONE (23:30)
[2018-10-12] MEDS ORDERED: PANTOPRAZOLE 40 MG VIAL ONE (23:33)
--- NOTE | 2018-10-12 23:45 | NUR ---
TECH AT BEDSIDE FOR EKG
[2018-10-13] VITALS (13 sets, daily range): BP systolic 99–122; BP diastolic 48–62
[2018-10-13 00:01] LABS: BASOPHILS % (AUTO) 0.3 % (0.0-2.0); EOSINOPHILS % (AUTO) 0.2 % (0.0-6.0); HEMATOCRIT 28 % (33-45); HEMOGLOBIN 9.1 g/dL (11.5-14.8); LYMPHOCYTES % (AUTO) 0.8 % (20.0-44.0); MEAN CORPUSCULAR HGB CONC 33 g/dl (31.0-36.0); MEAN CORPUSCULAR VOLUME 87 fL (82-100); MONOCYTES # (AUTO) 0.3 /CMM (0.1-1.30); NEUTROPHILS # (AUTO) 4.9 /CMM (1.8-8.9); NEUTROPHILS % (AUTO) 93.7 % (43.0-81.0); RED BLOOD CELL COUNT(AUTO) 3.23 MIL/uL (4.0-5.2); WHITE BLOOD COUNT (AUTO) 5.3 K/uL (4.3-11.0)
[2018-10-13 00:09] LABS: PLATELET COUNT (AUTO) 14 /CMM (150-450)
--- NOTE | 2018-10-13 00:13 | NUR ---
RADIOLOGY AT BEDSIDE FOR XRAY
[2018-10-13 00:24] LABS: ALANINE AMINOTRANSFERASE 14 U/L (12-78); ALBUMIN 2.4 g/dL (3.4-5.0); ALKALINE PHOSPHATASE 51 U/L (46-116); ASPARTATE AMINOTRANSFERASE 10 U/L (15-37); BILIRUBIN,DIRECT 0.2 mg/dL (0.0-0.2); BILIRUBIN,TOTAL 0.6 mg/dL (0.2-1.0); CALCIUM, SERUM 8.5 mg/dL (8.5-10.1); CARBON DIOXIDE 25 mmol/L (21-32); CHLORIDE 102 mmol/L (98-107); CREATININE 2.1 mg/dL (0.6-1.3); GLUCOSE 494 mg/dL (74-106); LIPASE 80 U/L (73-393); POTASSIUM 5.5 mmol/L (3.5-5.1); SODIUM SERUM 135 mmol/L (136-145); TOTAL PROTEIN, SERUM 5.5 g/dL (6.4-8.2); UREA NITROGEN, BLOOD 36 mg/dL (7-18)
[2018-10-13 00:27] LABS: EOSINOPHILS % (MANUAL) 1 % (0-4); LYMPHOCYTES % (MANUAL) 1 % (16-48); MONOCYTES % (MANUAL) 3 % (0-11.0); NEUTROPHILS % (MANUAL) 95 (42-76)
[2018-10-13] MEDS ORDERED: INSULIN REGULAR, HUMAN 100 UNIT/ML 10 ML VIAL IV ONE (01:00)
[2018-10-13] MEDS ORDERED: INSULIN REGULAR, HUMAN 100 UNIT/ML 10 ML VIAL ONE (01:06)
--- NOTE | 2018-10-13 01:49 | NUR ---
Patient is resting comfortably in bed with eyes closed. Easily aroused. VSS. CAREGIVER AT BEDSIDE.
--- NOTE | 2018-10-13 01:52 | NUR ---
REPORT GIVEN TO ULISSES CORDERO FOR PATITO
[2018-10-13] MEDS ORDERED: MAG HYDROX/AL HYDROX/SIMETH 30 ML UDC PO PRN (02:00)
[2018-10-13] MEDS ORDERED: ACETAMINOPHEN 325 MG TABLET PO PRN (02:00)
[2018-10-13] MEDS ORDERED: Z GUARD REMEDY 2 OZ OINT TP PRN (02:00)
[2018-10-13] MEDS ORDERED: ZOLPIDEM TARTRATE 5 MG TABLET PO PRN (02:00)
[2018-10-13] MEDS ORDERED: ONDANSETRON HCL/PF 4 MG/2 ML VIAL IVP PRN (02:00)
[2018-10-13] MEDS ORDERED: MAGNESIUM HYDROXIDE 30 ML UDC PO PRN (02:00)
[2018-10-13] MEDS ORDERED: HYDROMORPHONE INJ 2 MG/ML DISP.SYRIN IV PRN (02:00)
[2018-10-13] MEDS ORDERED: SODIUM POLYSTYRENE SULFONATE 15 G/60 ML BOTTLE PO ONE (02:30)
--- NOTE | 2018-10-13 02:30 | NUR ---
BAGGAGE PORTER HEAD NOTES ADMITTED PATIENT TRANSPORTED VIA GURNEY, BREATHING EVEN AND UNLABORED, CAREGIVER AT THE BEDSIDE, ADMISSION AND INITIAL PHYSICAL ASSESSMENT DONE, ALL SAFETY MEASURES IN PLACED, ASPIRATION PRECAUTION OBSERVED. ORIENTED TO UNIT. ALL NEEDS ATTENDED. WILL CONTINUE TO MONITOR.
--- NOTE | 2018-10-13 04:40 | NUR ---
LIFE ENRICHMENT MANAGER NOTES TRANSFUSE I UNIT OF PLATELETS, MONITORED VITAL SIGNS, NO SIGNS OF DISTRESS NOTED.
[2018-10-13 06:37] LABS: BASOPHILS % (AUTO) 0.2 % (0.0-2.0); EOSINOPHILS % (AUTO) 0.2 % (0.0-6.0); HEMATOCRIT 26 % (33-45); HEMOGLOBIN 8.4 g/dL (11.5-14.8); LYMPHOCYTES # (AUTO) 0.1 /CMM (0.8-4.8); LYMPHOCYTES % (AUTO) 1.2 % (20.0-44.0); MEAN CORPUSCULAR HGB CONC 32 g/dl (31.0-36.0); MEAN CORPUSCULAR VOLUME 87 fL (82-100); MONOCYTES # (AUTO) 0.3 /CMM (0.1-1.30); MONOCYTES % (AUTO) 5.9 % (2.0-12.0); NEUTROPHILS # (AUTO) 4.9 /CMM (1.8-8.9); NEUTROPHILS % (AUTO) 92.5 % (43.0-81.0); RED BLOOD CELL COUNT(AUTO) 2.98 MIL/uL (4.0-5.2); WHITE BLOOD COUNT (AUTO) 5.3 K/uL (4.3-11.0)
[2018-10-13 06:41] LABS: PLATELET COUNT (AUTO) 34 /CMM (150-450)
[2018-10-13 06:45] LABS: ALANINE AMINOTRANSFERASE 12 U/L (12-78); ALBUMIN 2.4 g/dL (3.4-5.0); ALKALINE PHOSPHATASE 46 U/L (46-116); ASPARTATE AMINOTRANSFERASE 9 U/L (15-37); BILIRUBIN,TOTAL 0.6 mg/dL (0.2-1.0); CALCIUM, SERUM 8.2 mg/dL (8.5-10.1); CARBON DIOXIDE 22 mmol/L (21-32); CHLORIDE 102 mmol/L (98-107); CREATININE 2.1 mg/dL (0.6-1.3); MAGNESIUM 1.9 mg/dL (1.8-2.4); PHOSPHORUS 3.4 mg/dL (2.5-4.9); POTASSIUM 5.1 mmol/L (3.5-5.1); SODIUM SERUM 136 mmol/L (136-145); TOTAL PROTEIN, SERUM 5.2 g/dL (6.4-8.2); UREA NITROGEN, BLOOD 35 mg/dL (7-18)
[2018-10-13 06:52] LABS: GLUCOSE 350 mg/dL (74-106)
[2018-10-13 07:13] LABS: NEUTROPHILS % (MANUAL) 90 (42-76)
[2018-10-13 07:14] LABS: LYMPHOCYTES % (MANUAL) 2 % (16-48); MONOCYTES % (MANUAL) 8 % (0-11.0)
[2018-10-13] MEDS: BLOOD SUGAR DIAGNOSTIC 1 EACH STRIP VI SCH ×4 (07:37→21:36)
[2018-10-13] MEDS: INSULIN REGULAR, HUMAN 100 UNIT/ML 3 ML VIAL SQ PRN ×4 (07:45→21:36)
--- NOTE | 2018-10-13 07:50 | NUR ---
RN NOTES ENDORSED TO AM NURSE FOR CONTINUITY OF CARE.
--- NOTE | 2018-10-13 07:59 | NUR ---
TELE/RN OPENING NOTE PATIENT IN BED IN STABLE CONDITION. A/O X 3. NO SIGNS OF ACUTE DISTRESS. NO COMPLAIN OF PAIN OR DISCOMFORT. ON TELE MONITOR NOTED WITH SINUS RHYTHM 83. ALL NEEDS ATTENDED TO. CALL LIGHT WITHIN REACH. WILL CONTINUE TO MONITOR TO ENSURE SAFETY.
[2018-10-13] MEDS: PANTOPRAZOLE 40 MG VIAL IV SCH ×2 (08:27→17:54)
[2018-10-13] MEDS: CLOPIDOGREL BISULFATE 75 MG TABLET PO SCH (08:28)
[2018-10-13] MEDS: LOSARTAN POTASSIUM 25 MG TABLET PO SCH (08:28)
[2018-10-13] MEDS: REPAGLINIDE 0.5 MG TABLET PO SCH ×2 (14:58→17:54)
[2018-10-13] MEDS: IV NS 0.9% 1,000 ML IV PRN (14:59)
--- NOTE | 2018-10-13 15:12 | NUR ---
MS/RN SPOKE WITH DR MOSELEY AND NOTIFY PATIENT DONE WITH MRI OF ABDOMEN PROCEDURE AND IF ITS OKAY TO RESTART DIET AGAIN. PER DR MOSELEY OKAY TO START PREVIOUS DIET. CCHO PUREED TEXTURE. PATIENT NOTIFY
--- NOTE | 2018-10-13 16:10 | NUR ---
MS/RN SPOKE WITH AUSTIN WATKINS AND MADE AWARE PATIENT HAS ORDER FOR US GUIDED PARACENTESIS SCHEDULE FOR TODAY SECONDARY TO [facility]. PER AUSTIN, "SHE WON'T BE ABLE TO DO PARACENTESIS TODAY AND ALSO PATIENT PLATELETS IS TOO LOW FOR THEM TO DO THE PARACENTESIS. DR MOSELEY NOTIFIED.
--- NOTE | 2018-10-13 18:28 | NUR ---
MS/RN CLOSING NOTE PATIENT IN BED IN STABLE CONDITION. A/O X 3. NO SIGNS OF ACUTE DISTRESS. NO COMPLAIN OF PAIN OR DISCOMFORT. ALL NEEDS ATTENDED TO. CALL LIGHT WITHIN REACH. WILL ENDORSE TO NEXT SHIFT FOR CONTINUITY OF CARE.
--- NOTE | 2018-10-13 19:20 | NUR ---
RN MS OPENING NOTES RECEIVE PT IN BED AWAKE ALERT ORIENTED, X2, BREATHING EVEN AND UNLABORED ON ROOM AIR. NO COMPLAINTS OF PAIN OR PAIN OR DISCOMFORT AT THIS TIME. IV ACCESS ON THE A AC #20G SL, PATENT AND FLUSHING. BED IN LOWEST LOCKED POSITION CALL LIGHT WITHIN REACH AT ALL TIMES, WILL CONTINUE TO MONITOR.
[2018-10-13] MEDS: ATORVASTATIN 10 MG TABLET PO SCH (21:34)
[2018-10-13] MEDS: INSULIN GLARGINE, 100 UNIT/ML CARTRIDGE SQ SCH (21:35)
[2018-10-14] MEDS: BLOOD SUGAR DIAGNOSTIC 1 EACH STRIP VI SCH ×4 (06:18→22:07)
--- NOTE | 2018-10-14 06:19 | NUR ---
GS LEVEL OF 61, CUP OF ORANGE JUICE, WILL RECHECK IN 30 MINUTES
--- NOTE | 2018-10-14 06:20 | NUR ---
RN MS CLOSING NOTES PT REMAINS IN BED AWAKE ALERT ORIENTED, X2, BREATHING EVEN AND UNLABORED ON ROOM AIR. NO COMPLAINTS OF PAIN OR PAIN OR DISCOMFORT AT THIS TIME. IV ACCESS ON THE A AC #20G SL, PATENT AND FLUSHING. CONSENT FOR US GUIDED PARACENTESIS SIGNED IN CHART. BED IN LOWEST LOCKED POSITION CALL LIGHT WITHIN REACH AT ALL TIMES, WILL ENDORSE TO DAY NURSE FOR PATITO .
[2018-10-14 06:29] LABS: BASOPHILS % (AUTO) 0.1 % (0.0-2.0); EOSINOPHILS % (AUTO) 1.9 % (0.0-6.0); HEMATOCRIT 26 % (33-45); HEMOGLOBIN 8.5 g/dL (11.5-14.8); LYMPHOCYTES # (AUTO) 0.1 /CMM (0.8-4.8); LYMPHOCYTES % (AUTO) 3.2 % (20.0-44.0); MEAN CORPUSCULAR HGB CONC 33 g/dl (31.0-36.0); MEAN CORPUSCULAR VOLUME 86 fL (82-100); MONOCYTES # (AUTO) 0.3 /CMM (0.1-1.30); MONOCYTES % (AUTO) 8.4 % (2.0-12.0); NEUTROPHILS % (AUTO) 86.4 % (43.0-81.0); RED BLOOD CELL COUNT(AUTO) 3.03 MIL/uL (4.0-5.2); WHITE BLOOD COUNT (AUTO) 3.5 K/uL (4.3-11.0)
[2018-10-14 06:35] LABS: CALCIUM, SERUM 8.2 mg/dL (8.5-10.1); CARBON DIOXIDE 26 mmol/L (21-32); CHLORIDE 106 mmol/L (98-107); CREATININE 1.9 mg/dL (0.6-1.3); GLUCOSE 74 mg/dL (74-106); PLATELET COUNT (AUTO) 12 /CMM (150-450); POTASSIUM 5.1 mmol/L (3.5-5.1); SODIUM SERUM 138 mmol/L (136-145); UREA NITROGEN, BLOOD 36 mg/dL (7-18)
[2018-10-14 07:40] LABS: EOSINOPHILS % (MANUAL) 2 % (0-4); LYMPHOCYTES % (MANUAL) 4 % (16-48); MONOCYTES % (MANUAL) 7 % (0-11.0); NEUTROPHILS % (MANUAL) 87 (42-76)
--- NOTE | 2018-10-14 07:55 | NUR ---
MS RN RECEIVED ON BED. AWAKE,ALERT,ORIENTED X2-3,NOT IN ANY FORM OF DISTRESS, RES[IRATIONS EVEN AND UNLABORED,NO SOB NOTED, LUNGS ARE CLEAR,ABDOMEN SOFT,POSITIVE BOWEL SOUNDS, DENIES PAIN AT THIS ITME, WILL MONITOR PATIENT.
[2018-10-14 08:00] VITALS: BP 116/54
[2018-10-14] MEDS: CLOPIDOGREL BISULFATE 75 MG TABLET PO SCH (09:00)
[2018-10-14] MEDS: LOSARTAN POTASSIUM 25 MG TABLET PO SCH (09:00)
[2018-10-14] MEDS: REPAGLINIDE 0.5 MG TABLET PO SCH ×3 (09:00→17:40)
--- NOTE | 2018-10-14 09:30 | NUR ---
MS GTZ BREAKFAST SERVED,DUE MEDS GIVEN, TOLERATED WELL.
[2018-10-14] MEDS: PANTOPRAZOLE 40 MG VIAL IV SCH ×2 (10:23→17:39)
--- NOTE | 2018-10-14 11:00 | NUR ---
MS RN WAS SEEN B DR. BHAT, AWARE OF THE LOW PLATELET,DR. OM IS IN THE CASE, WAS ABLE TO SPEAK W/ THE DPOA, MOSHE JHA.
--- NOTE | 2018-10-14 14:00 | NUR ---
MS RN CALLED DR. MO, PT IS WEAK TO GO TO MRI, WAS TOLD TO DO IN AM.
[2018-10-14] MEDS: INSULIN REGULAR, HUMAN 100 UNIT/ML 3 ML VIAL SQ PRN ×2 (14:29→18:01)
--- NOTE | 2018-10-14 14:30 | NUR ---
MS RN ORDERED TO TRANSFUSE 1 PLATELET , RADIOLOGY WANTS TO DO IT IN AM BEFORE THEY DO PARACENTHESIS.
[2018-10-14] MEDS: SOD FERRIC GLUC 125 MG in IV NS 0.9% 100 ML IV SCH (15:21)
[2018-10-14 16:00] VITALS: BP 99/50
--- NOTE | 2018-10-14 18:10 | NUR ---
MS GTZ BS - 202 - 6 UNITS OF INSULIN GIVEN.
--- NOTE | 2018-10-14 19:00 | NUR ---
MS RN ON BED, NO DISTRESS NOTED.
--- NOTE | 2018-10-14 19:40 | NUR ---
MS RN NOTES RECEIVED ON BED A/O X2-3,BREATHING NORMAL,NOT IN ANY FORM OF DISTRESS.PALE LOOKING,PLATELETS 12 THIS MORNING.WITH SALINE LOCK RIGHT AC INTACT AND PATENT.CALL LIGHT IN REACH.WILL CONTINUE TO MONITOR STATUS.
[2018-10-14 20:00] VITALS: BP 118/60
--- NOTE | 2018-10-14 22:00 | NUR ---
MS RN NOTES ACCU-CHECK BLOOD SUGAR CHECK 146,COVERED WITH HUMULIN R 2 UNITS PER SIDING SCALE,ALONG LANTUS 15 UNITS ORDERED.
[2018-10-14] MEDS: ATORVASTATIN 10 MG TABLET PO SCH (22:06)
[2018-10-14] MEDS: *INSULIN REGULAR(HUMULIN R)HUM 100 UNIT/ML VIAL SQ PRN (22:17)
[2018-10-14] MEDS: INSULIN GLARGINE, 100 UNIT/ML CARTRIDGE SQ SCH (22:19)
[2018-10-15] VITALS (7 sets, daily range): BP systolic 114–134; BP diastolic 54–74
--- NOTE | 2018-10-15 02:00 | NUR ---
MS RN NOTES SLEEPING AT THIS TIME,KEPT WARM AND COMFORTABLE.
--- NOTE | 2018-10-15 06:45 | NUR ---
MS RN NOTES ACCU-CHECK BLOOD SUGAR 53 AFTER REPEAT OF 50MG/DL,AROUSABLE TO VERBAL STIMULI.NON DIAPHORETIC.
--- NOTE | 2018-10-15 06:50 | NUR ---
MS RN NOTES BLOOD SUGAR 53,D50 1 AMPULE GIVEN PER PROTOCOL FOR BLOOD SUGAR BELOW 60
[2018-10-15] MEDS: DEXTROSE 50%-WATER 50 ML DISP.SYRIN IV PRN (06:54)
[2018-10-15] MEDS: BLOOD SUGAR DIAGNOSTIC 1 EACH STRIP VI SCH ×4 (06:54→22:04)
[2018-10-15] MEDS: INSULIN REGULAR, HUMAN 100 UNIT/ML 3 ML VIAL SQ PRN (06:55)
--- NOTE | 2018-10-15 06:58 | NUR ---
MS RN NOTES A/O X 3,NPO FOR MRI PELVIS,ENDORSED TO ADMINISTER 1 UNIT OF PLATELETS BEFORE GOING TO ULTRASOUND GUIDED PARACENTESIS,PLATELETS READY.IN NO ACUTE DISTRESS.ENDORSE TO DAY NURSE FOR PATITO.
--- NOTE | 2018-10-15 07:15 | NUR ---
RN OPENING NOTES PT AWAKE AND RESTING IN BED. NO APPARENT S/S OF PAIN, DISTRESS OR SOB AT THIS TIME. PT DUE FOR US GUIDED PARACENTESIS AND MRI OF PELVIS TODAY. WILL FOLLOW UP WITH RADIOLOGY. PT DUE FOR 1 UNIT OF PLATELETS TODAY. SAFETY PRECAUTIONS IN PLACE, BED IN LOWEST LOCKED POSITION, X2 SIDE RAILS UP AND CALL LIGHT WITHIN REACH WILL CONTINUE TO MONITOR.
[2018-10-15 07:28] LABS: BASOPHILS % (AUTO) 0.1 % (0.0-2.0); HEMATOCRIT 27 % (33-45); HEMOGLOBIN 8.8 g/dL (11.5-14.8); LYMPHOCYTES # (AUTO) 0.1 /CMM (0.8-4.8); LYMPHOCYTES % (AUTO) 3.1 % (20.0-44.0); MEAN CORPUSCULAR HGB CONC 33 g/dl (31.0-36.0); MEAN CORPUSCULAR VOLUME 85 fL (82-100); MONOCYTES # (AUTO) 0.3 /CMM (0.1-1.30); NEUTROPHILS # (AUTO) 3.2 /CMM (1.8-8.9); NEUTROPHILS % (AUTO) 87.8 % (43.0-81.0); RED BLOOD CELL COUNT(AUTO) 3.15 MIL/uL (4.0-5.2); WHITE BLOOD COUNT (AUTO) 3.7 K/uL (4.3-11.0)
[2018-10-15 07:49] LABS: CARBON DIOXIDE 22 mmol/L (21-32); CHLORIDE 106 mmol/L (98-107); CREATININE 1.7 mg/dL (0.6-1.3); GLUCOSE 56 mg/dL (74-106); MAGNESIUM 1.6 mg/dL (1.8-2.4); PHOSPHORUS 3.9 mg/dL (2.5-4.9); POTASSIUM 4.8 mmol/L (3.5-5.1); SODIUM SERUM 138 mmol/L (136-145); UREA NITROGEN, BLOOD 43 mg/dL (7-18)
[2018-10-15 07:57] LABS: PLATELET COUNT (AUTO) 7 /CMM (150-450)
[2018-10-15 09:00] LABS: EOSINOPHILS % (MANUAL) 2 % (0-4); LYMPHOCYTES % (MANUAL) 3 % (16-48); MONOCYTES % (MANUAL) 3 % (0-11.0); NEUTROPHILS % (MANUAL) 92 (42-76)
[2018-10-15] MEDS: LOSARTAN POTASSIUM 25 MG TABLET PO SCH (09:00)
[2018-10-15] MEDS: CLOPIDOGREL BISULFATE 75 MG TABLET PO SCH (09:00)
--- NOTE | 2018-10-15 09:00 | NUR ---
RN NOTES CALLED PHARMACY. PROTONIX 40MG UNAVAILABLE. WILL FOLLOW UP.
[2018-10-15] MEDS: REPAGLINIDE 0.5 MG TABLET PO SCH ×3 (10:08→17:02)
[2018-10-15] MEDS: Magnesium 1GM/D5W 100ML PREMIX 100 ML IV SCH ×3 (10:55→13:06)
[2018-10-15] MEDS: PANTOPRAZOLE 40 MG VIAL IV SCH ×2 (10:55→17:01)
--- NOTE | 2018-10-15 12:46 | NUR ---
US GUIDED PARACENTESIS ON HOLD DUE TO LOW PLATELET COUNT INFORMED ULISSES FELIZ. WILL FOLLOW UP TOMORROW.
[2018-10-15 13:30] LABS: BASOPHILS % (AUTO) 0.1 % (0.0-2.0); EOSINOPHILS % (AUTO) 0.6 % (0.0-6.0); HEMATOCRIT 28 % (33-45); LYMPHOCYTES # (AUTO) 0.1 /CMM (0.8-4.8); MEAN CORPUSCULAR HGB CONC 33 g/dl (31.0-36.0); MEAN CORPUSCULAR VOLUME 86 fL (82-100); MONOCYTES # (AUTO) 0.3 /CMM (0.1-1.30); MONOCYTES % (AUTO) 6.6 % (2.0-12.0); NEUTROPHILS # (AUTO) 4.6 /CMM (1.8-8.9); NEUTROPHILS % (AUTO) 90.7 % (43.0-81.0); WHITE BLOOD COUNT (AUTO) 5.1 K/uL (4.3-11.0)
[2018-10-15 13:38] LABS: PLATELET COUNT (AUTO) 15 /CMM (150-450)
[2018-10-15 14:13] LABS: BAND % (MANUAL) 8 % (0.0-5.0); EOSINOPHILS % (MANUAL) 2 % (0-4); LYMPHOCYTES % (MANUAL) 2 % (16-48); MONOCYTES % (MANUAL) 2 % (0-11.0); NEUTROPHILS % (MANUAL) 86 (42-76)
[2018-10-15] MEDS: SOD FERRIC GLUC 125 MG in IV NS 0.9% 100 ML IV SCH (14:22)
[2018-10-15] MEDS: IV NS 0.9% 1,000 ML IV PRN (18:47)
--- NOTE | 2018-10-15 19:07 | NUR ---
RN CLOSING NOTES PT AWAKE AND RESTING IN BED. NO APPARENT S/S OF PAIN, DISTRESS OR SOB DURING SHIFT.PER DR MO NO MRI OF PELVIS AND US GUIDED PARACENTESIS ON HOLD PLATELETS. PER DR MO 2 UNITS OF PLATELETS ORDERED TO BE GIVEN TONIGHT. CONSENT FOR BIOPSY NEEDED. SAFETY PRECAUTIONS IN PLACE, BED IN LOWEST LOCKED POSITION, X2 SIDE RAILS UP AND CALL LIGHT WITHIN REACH WILL ENDORSE TO TOE LASTER NURSE FOR CONTINUITY OF CARE.
--- NOTE | 2018-10-15 19:15 | NUR ---
MS RN NOTES RECEIVED ON BED A/O X3,BREATHING REGULAR,NOT IN ANY FORM OF DISTRESS.SALINE LOCK LEFT HAND INTACT AND PATENT.IVF IN PROGRESS NS AT 75ML/HR RATE.ON GEL BED FOR SKIN MANAGEMENT.PER REPORT.WILL RECEIVE 2 PLATELETS TONIGHT FOR PLATELETS LEVEL OF 15.CALL LIGHT IN REACH,NEEDS ANTICIPATED.
--- NOTE | 2018-10-15 20:00 | NUR ---
MS GTZ NOTES ACCU-CHECK BLOOD SUGAR CHECK 176,NPO THE WHOLE DAY.BLOOD SUGAR EASILY DROP DOWN IN THE MORNING.WENT HYPO THIS MORNING 53,WAS GIVEN D50 1 AMPULE.WILL CONTINUE TO MONITOR STATUS. Addendum: 10/15/18 at 2228 by HUMERA RIOS RN BLOOD SUGAR CHECK AT 2200,NOT 1999.
--- NOTE | 2018-10-15 20:31 | NUR ---
MS RN NOTES STARTED ON PLATELETS 221ML OVER AN HOUR ORDERED.VITAL SIGNS WITH IN NORMAL LIMITS
--- NOTE | 2018-10-15 21:42 | NUR ---
MS RN NOTES FIRST UNIT OF PLATELETS 221ML COMPLETED,NO SOB NOTED.VITAL SIGNS WITH IN NORMAL LIMITS
--- NOTE | 2018-10-15 21:58 | NUR ---
MS RN NOTES SECOND UNIT OF PLATELETS 222ML STARTED,BP 129/68,PULSE 69,ORAL TEMP 97.8
[2018-10-15] MEDS: INSULIN GLARGINE, 100 UNIT/ML CARTRIDGE SQ SCH (22:00)
[2018-10-15] MEDS: ATORVASTATIN 10 MG TABLET PO SCH (22:05)
[2018-10-15] MEDS: *INSULIN REGULAR(HUMULIN R)HUM 100 UNIT/ML VIAL SQ PRN (22:11)
--- NOTE | 2018-10-15 23:00 | NUR ---
MS RN NOTES PHONED ABHIJEET OCHOA,A LONG TIME FRIEND WITH DPOA BY PATIENT,CONSENTING FOR PLANNED BONE MARROW BIOPSY AND ASPIRATION TOMORROW BY DR MO,WITNESSED BY OTHER RN RVI.
--- NOTE | 2018-10-15 23:22 | NUR ---
MS RN NOTES PLATELETS 222ML COMPLETED,NO FLUID OVERLOAD NOTED.VITAL SIGNS WITH IN NORMAL LIMITS.
--- NOTE | 2018-10-16 05:30 | NUR ---
MS RN NOTES ACCU-CHECK BLOOD SUGAR CHECK 200,COVERED WITH HUMULIN R 3 UNITS PER SLIDING SCALE.
[2018-10-16] MEDS: BLOOD SUGAR DIAGNOSTIC 1 EACH STRIP VI SCH ×4 (05:31→21:29)
[2018-10-16] MEDS: INSULIN REGULAR, HUMAN 100 UNIT/ML 3 ML VIAL SQ PRN ×2 (05:39→12:22)
--- NOTE | 2018-10-16 06:15 | NUR ---
MS RN NOTES IV SITE LEAKING.NEW SALINE LOCK RIGHT HAND #22 INSERTED,SAME IVF INFUSING VIA IV PUMP.
--- NOTE | 2018-10-16 06:36 | NUR ---
MS RN NOTES A/O X1-2.NO SOB ,PALE LOOKING,IVF IN PROGRESS,IN NO ACUTE DISTRESS.WILL ENDORSE TO DAY NURSE FOR PATITO.
[2018-10-16 07:17] LABS: HEMATOCRIT 27 % (33-45); HEMOGLOBIN 8.8 g/dL (11.5-14.8); MEAN CORPUSCULAR HGB CONC 33 g/dl (31.0-36.0); MEAN CORPUSCULAR VOLUME 86 fL (82-100); RED BLOOD CELL COUNT(AUTO) 3.16 MIL/uL (4.0-5.2); WHITE BLOOD COUNT (AUTO) 3.5 K/uL (4.3-11.0)
--- NOTE | 2018-10-16 07:30 | NUR ---
RN OPENING NOTES RECEIVED PT. IN BED AWAKE, A&OX2. BREATHING UNLABORED ON ROOM AIR. NO S/S OF ACUTE DISTRESS. IV FLUIDS RUNNING AT 75 ML/HR. BED IS IN LOWEST, AND LOCKED POSITION. 2 SIDE RAILS UP, AND CALL LIGHT WITHIN REACH. ALL NEEDS MET. WILL CONTINUE TO ASSESS AND MONITOR.
[2018-10-16 07:37] LABS: PLATELET COUNT (AUTO) 18 /CMM (150-450)
[2018-10-16 07:39] LABS: CALCIUM, SERUM 8.3 mg/dL (8.5-10.1); CARBON DIOXIDE 23 mmol/L (21-32); CHLORIDE 102 mmol/L (98-107); CREATININE 1.6 mg/dL (0.6-1.3); GLUCOSE 242 mg/dL (74-106); MAGNESIUM 2.2 mg/dL (1.8-2.4); PHOSPHORUS 4.5 mg/dL (2.5-4.9); POTASSIUM 4.8 mmol/L (3.5-5.1); SODIUM SERUM 133 mmol/L (136-145); UREA NITROGEN, BLOOD 42 mg/dL (7-18)
[2018-10-16 07:53] LABS: NEUTROPHILS % (AUTO) 91.8 % (43.0-81.0)
[2018-10-16 07:54] LABS: BASOPHILS % (AUTO) 0.1 % (0.0-2.0); EOSINOPHILS % (AUTO) 0.7 % (0.0-6.0); LYMPHOCYTES % (AUTO) 1.5 % (20.0-44.0); MONOCYTES % (AUTO) 5.9 % (2.0-12.0)
[2018-10-16 07:55] LABS: LYMPHOCYTES # (AUTO) 0.1 /CMM (0.8-4.8); MONOCYTES # (AUTO) 0.2 /CMM (0.1-1.30); NEUTROPHILS # (AUTO) 3.4 /CMM (1.8-8.9)
[2018-10-16 08:00] VITALS: BP 129/72
[2018-10-16 08:00] LABS: BAND % (MANUAL) 4 % (0.0-5.0); LYMPHOCYTES % (MANUAL) 6 % (16-48); MONOCYTES % (MANUAL) 7 % (0-11.0); NEUTROPHILS % (MANUAL) 83 (42-76)
[2018-10-16] MEDS: REPAGLINIDE 0.5 MG TABLET PO SCH ×3 (10:06→17:00)
[2018-10-16] MEDS: LOSARTAN POTASSIUM 25 MG TABLET PO SCH (10:06)
[2018-10-16] MEDS: PANTOPRAZOLE 40 MG VIAL IV SCH ×2 (10:06→17:00)
[2018-10-16 16:00] VITALS: BP 137/80
[2018-10-16] MEDS: SOD FERRIC GLUC 125 MG in IV NS 0.9% 100 ML IV SCH (16:02)
[2018-10-16] MEDS ORDERED: LIDOCAINE 1% INJ 50 ML MDV IJ ONE (17:30)
--- NOTE | 2018-10-16 19:42 | NUR ---
RN CLOSING NOTES PT. IS IN BED AWAKE, A&OX2. BREATHING UNLABORED ON ROOM AIR. NO S/S OF ACUTE DISTRESS. IV FLUIDS RUNNING AT 75 ML/HR. BED IS IN LOWEST, AND LOCKED POSITION. BED ALARM ON, 2 SIDE RAILS UP, AND CALL LIGHT WITHIN REACH. ALL NEEDS MET. ENDORSED REPORT TO NURSE.
[2018-10-16 20:00] VITALS: BP 120/60
--- NOTE | 2018-10-16 20:00 | NUR ---
MS/RN RECEIVE PATIENT AWAKE, ALERT ORIENTED, COMFORTABLE, NO C/O PAIN, NO DISTRESS NOTED, CALL LIGHT IN REACH. FALL PRECAUTION. WILL MONITOR.
[2018-10-16] MEDS: INSULIN GLARGINE, 100 UNIT/ML CARTRIDGE SQ SCH (21:26)
[2018-10-16] MEDS: *INSULIN REGULAR(HUMULIN R)HUM 100 UNIT/ML VIAL SQ PRN (21:27)
[2018-10-16] MEDS: ATORVASTATIN 10 MG TABLET PO SCH (21:28)
[2018-10-16] MEDS: HYDROCODONE/APAP 5/325MG 1 EACH TABLET PO PRN (21:29)
[2018-10-16] MEDS: IV NS 0.9% 1,000 ML IV PRN (23:01)
[2018-10-17] VITALS (7 sets, daily range): BP systolic 106–166; BP diastolic 58–86
--- NOTE | 2018-10-17 01:26 | NUR ---
MS/RN PATIENT IS SLEEPING AT THIS TIME, APPEAR COMFORTABLE, NO DISTRESS NOTED, CALL LIGHT IN REACH. WILL CONTINUE TO MONITOR.
--- NOTE | 2018-10-17 07:00 | NUR ---
MS RN Opening Notes 312-2 Patient awake, resting in bed. Alert and oriented x2, able to make needs known with some confusion noted. No complaints or signs of pain at this time. Respirations even and unlabored on room air, no acute distress noted. Peripheral IV to the right hand 22 gauge, intact, patent and infusing NS at 75 mL/hr. Updated patient on current plan of care and safety measures. Safety and fall precautions in place: bed in lowest and locked position, side rails up x2, bed alarm on, call light and personal possessions within reach. Patient verbalized understanding. Will continue to monitor and intervene as needed.
--- NOTE | 2018-10-17 07:03 | NUR ---
MS/RN PATIENT IS AWAKE, COMFORTABLE, NO DISTRESS NOTED, ALL NEEDS ATTENDED AT THIS TIME, WILL CONTINUE TO MONITOR.
[2018-10-17 07:42] LABS: CALCIUM, SERUM 7.8 mg/dL (8.5-10.1); CARBON DIOXIDE 19 mmol/L (21-32); CHLORIDE 105 mmol/L (98-107); CREATININE 1.4 mg/dL (0.6-1.3); GLUCOSE 94 mg/dL (74-106); MAGNESIUM 2.2 mg/dL (1.8-2.4); PHOSPHORUS 4.5 mg/dL (2.5-4.9); POTASSIUM 5.2 mmol/L (3.5-5.1); SODIUM SERUM 135 mmol/L (136-145); UREA NITROGEN, BLOOD 41 mg/dL (7-18)
[2018-10-17] MEDS: BLOOD SUGAR DIAGNOSTIC 1 EACH STRIP VI SCH ×4 (08:34→23:33)
[2018-10-17] MEDS: PANTOPRAZOLE 40 MG VIAL IV SCH ×2 (09:41→16:50)
[2018-10-17] MEDS: LOSARTAN POTASSIUM 25 MG TABLET PO SCH (09:42)
[2018-10-17] MEDS: HYDROCODONE/APAP 5/325MG 1 EACH TABLET PO PRN ×3 (09:42→20:36)
[2018-10-17] MEDS: REPAGLINIDE 0.5 MG TABLET PO SCH ×3 (09:46→16:50)
--- NOTE | 2018-10-17 10:00 | NUR ---
Called blood bank to place order for platelets, order placed by Dr. Garcia for transfusion today. Per blood bank, platelets will be available later on for transfusion. Will notify RN when ready. Will follow-up this afternoon.
[2018-10-17 10:55] LABS: BASOPHILS % (AUTO) 0.1 % (0.0-2.0); HEMATOCRIT 28 % (33-45); HEMOGLOBIN 9.4 g/dL (11.5-14.8); LYMPHOCYTES # (AUTO) 0.1 /CMM (0.8-4.8); LYMPHOCYTES % (AUTO) 3.1 % (20.0-44.0); MEAN CORPUSCULAR HGB CONC 33 g/dl (31.0-36.0); MEAN CORPUSCULAR VOLUME 85 fL (82-100); MONOCYTES # (AUTO) 0.3 /CMM (0.1-1.30); MONOCYTES % (AUTO) 7.4 % (2.0-12.0); NEUTROPHILS # (AUTO) 3.2 /CMM (1.8-8.9); NEUTROPHILS % (AUTO) 88.4 % (43.0-81.0); RED BLOOD CELL COUNT(AUTO) 3.31 MIL/uL (4.0-5.2); WHITE BLOOD COUNT (AUTO) 3.6 K/uL (4.3-11.0)
[2018-10-17 11:09] LABS: PLATELET COUNT (AUTO) 9 /CMM (150-450)
[2018-10-17 11:51] LABS: EOSINOPHILS % (MANUAL) 1 % (0-4); LYMPHOCYTES % (MANUAL) 3 % (16-48); MONOCYTES % (MANUAL) 3 % (0-11.0); NEUTROPHILS % (MANUAL) 93 (42-76)
--- NOTE | 2018-10-17 12:30 | NUR ---
Called blood bank to follow-up on platelet order for this patient. Per blood bank, platelets not ready yet. Will notify RN when available for transfusion.
--- NOTE | 2018-10-17 13:00 | NUR ---
Verified with Dr. Garcia about procedure time for bone marrow biopsy/aspiration. She said around 1700. Supplies at bedside, available for use. Consent forms signed. Platelets still unavailable for transfusion at this time per blood bank. Will endorse to night warehouse manager RN.
[2018-10-17] MEDS: SOD FERRIC GLUC 125 MG in IV NS 0.9% 100 ML IV SCH (13:01)
[2018-10-17] MEDS: IV NS 0.9% 1,000 ML IV PRN (13:07)
--- NOTE | 2018-10-17 17:00 | NUR ---
Spoke with Trish, patient's DPOA, about plan of care and updates on patient status.
--- NOTE | 2018-10-17 18:30 | NUR ---
Spoke with Dr. Reese about plan of care for patient pending prognosis. Recommend SNF placement, will refer to case management for discharge planning.
--- NOTE | 2018-10-17 19:00 | NUR ---
MS RN Closing Notes 312-2 Patient awake, resting in bed. Alert and oriented x2, able to make needs known with some confusion noted. No complaints or signs of pain at this time. Respirations even and unlabored on room air, no acute distress noted. Peripheral IV to the right hand 22 gauge, intact, patent and infusing NS at 75 mL/hr. Updated patient on current plan of care and safety measures. Safety and fall precautions in place: bed in lowest and locked position, side rails up x2, bed alarm on, call light and personal possessions within reach. Patient verbalized understanding. Dr. Garcia not yet to perform procedure. All due medications given as ordered. Will endorse to shift coordinator RN for continuity of care.
--- NOTE | 2018-10-17 20:01 | NUR ---
MS/RN CALLED BLOOD BACK, SPOKE TO BRICE, RE: PLATELET. PER MEREDITH IT WILL BE READY IN 30 MINUTES.
--- NOTE | 2018-10-17 21:41 | NUR ---
MS/RN PLATELET TRANSFUSION STARTED. WILL MONITOR PER PROTOCOL.
--- NOTE | 2018-10-17 22:00 | NUR ---
MS/RN HUY HUGGER WAS APPLIED TO THE PATIENT. WILL MONITOR.
--- NOTE | 2018-10-17 22:00 | NUR ---
MS/RN ORAL TEMP AT THIS TIME IS 97.8. WILL CONTINUE TO MONITOR.
[2018-10-17] MEDS: ATORVASTATIN 10 MG TABLET PO SCH (23:33)
[2018-10-17] MEDS: INSULIN GLARGINE, 100 UNIT/ML CARTRIDGE SQ SCH (23:39)
[2018-10-17] MEDS: *INSULIN REGULAR(HUMULIN R)HUM 100 UNIT/ML VIAL SQ PRN (23:40)
--- NOTE | 2018-10-17 23:51 | NUR ---
MS/RN PATIENT IS HYPOTHERMIC WITH RECTAL TEMP 95.6, NOTIFIED SANCHEZ EMERSON DNP, WITH ORDER OF HUY HICKS RECEIVED.
[2018-10-18] VITALS (9 sets, daily range): BP systolic 98–126; BP diastolic 46–79
--- NOTE | 2018-10-18 02:00 | NUR ---
MS/RN TEMP =97.8. HUY HICKS REMOVED PER PATIENT'S REQUEST. WILL CONTINUE TO MONITOR TEMP.
[2018-10-18] MEDS: DEXTROSE 50%-WATER 50 ML DISP.SYRIN IV PRN (06:50)
--- NOTE | 2018-10-18 06:55 | NUR ---
MS/RN ACCU CHECK BLOOD SUGAR 29, RECHECKED, 27, PATIENT IS ASYMPTOMATIC, D50 IVP WAS GIVEN. WILL MONITOR AND WILL RECHECK BLOOD SUGAR IN 20 MINUTES.
--- NOTE | 2018-10-18 07:09 | NUR ---
MS/RN STRAIGHT CATH DONE, 300 MLS, GENARO CLEAR URINE OUTPUT, DID BLADDER SCAN, 789MLS. ATTEMPTED TO RE INSERT STRAIGHT CATH, NO URINE OUTPUT, VAIBHAV GTZ, ATTEMPTED TO DO BUT UNSUCCESSFUL, PER PATIENT SHE WILL TRY TO URINATE. WILL ENDORSE.
[2018-10-18 07:10] LABS: BASOPHILS % (AUTO) 0.1 % (0.0-2.0); EOSINOPHILS % (AUTO) 0.5 % (0.0-6.0); HEMATOCRIT 24 % (33-45); HEMOGLOBIN 7.8 g/dL (11.5-14.8); LYMPHOCYTES # (AUTO) 0.1 /CMM (0.8-4.8); LYMPHOCYTES % (AUTO) 2.1 % (20.0-44.0); MEAN CORPUSCULAR HGB CONC 33 g/dl (31.0-36.0); MEAN CORPUSCULAR VOLUME 86 fL (82-100); MONOCYTES # (AUTO) 0.3 /CMM (0.1-1.30); MONOCYTES % (AUTO) 6.7 % (2.0-12.0); NEUTROPHILS # (AUTO) 3.8 /CMM (1.8-8.9); NEUTROPHILS % (AUTO) 90.6 % (43.0-81.0); RED BLOOD CELL COUNT(AUTO) 2.77 MIL/uL (4.0-5.2); WHITE BLOOD COUNT (AUTO) 4.3 K/uL (4.3-11.0)
[2018-10-18 07:22] LABS: PLATELET COUNT (AUTO) 17 /CMM (150-450)
--- NOTE | 2018-10-18 07:24 | NUR ---
MS/RN BLOOD SUGAR =101.
[2018-10-18 07:30] LABS: CALCIUM, SERUM 7.9 mg/dL (8.5-10.1); CARBON DIOXIDE 22 mmol/L (21-32); CHLORIDE 106 mmol/L (98-107); CREATININE 1.5 mg/dL (0.6-1.3); PHOSPHORUS 4.7 mg/dL (2.5-4.9); POTASSIUM 4.4 mmol/L (3.5-5.1); SODIUM SERUM 138 mmol/L (136-145); UREA NITROGEN, BLOOD 43 mg/dL (7-18)
[2018-10-18] MEDS: BLOOD SUGAR DIAGNOSTIC 1 EACH STRIP VI SCH ×4 (07:41→22:00)
[2018-10-18 07:56] LABS: GLUCOSE 44 mg/dL (74-106)
[2018-10-18] MEDS: PANTOPRAZOLE 40 MG VIAL IV SCH ×2 (08:27→18:50)
[2018-10-18] MEDS: LOSARTAN POTASSIUM 25 MG TABLET PO SCH (08:27)
[2018-10-18] MEDS: IV NS 0.9% 1,000 ML IV PRN (08:27)
[2018-10-18] MEDS: REPAGLINIDE 0.5 MG TABLET PO SCH ×3 (08:30→17:59)
--- NOTE | 2018-10-18 08:47 | NUR ---
HOLDING PRANDIN PO MEDICATION THIS MORNING DUE TO PT.'S MEASURING LOW BLOOD SUGAR BELOW 60 MG/DL SINCE 634 THIS MORNING. WILL FOLLOW UP WITH MD REGARDING MEDICATION.
[2018-10-18 13:24] LABS: LYMPHOCYTES % (MANUAL) 1 % (16-48); MONOCYTES % (MANUAL) 2 % (0-11.0); NEUTROPHILS % (MANUAL) 97 (42-76)
[2018-10-18] MEDS: SOD FERRIC GLUC 125 MG in IV NS 0.9% 100 ML IV SCH (14:22)
[2018-10-18 15:02] LABS: ABG BASE EXCESS -5.2 mmol/L; ABG OXYGEN SATURATION 96.8 % (92.0-98.5); ABG PCO2 44.7 mmHg (35.0-45.0); ABG PH 7.291 (7.350-7.450); ABG PO2 103.8 mmHg (75.0-100.0); AaDO2 43.1 mmHg; COHb 1.6 % (0.5-1.5); MetHb 0.6 % (0.0-1.5); O2Hb 94.7 % (94.0-97.0); SITE, ABG Left Radial; VENT MODE, BG NASAL CANNULA
[2018-10-18] MEDS: INSULIN REGULAR, HUMAN 100 UNIT/ML 3 ML VIAL SQ PRN (18:03)
--- NOTE | 2018-10-18 19:50 | NUR ---
RN NOTES RECEIVED PATIENT AWAKE IN BED, COMPLAINT OF DISCOMFORT, BREATHING EVEN AND UNLABORED,ON 2LPM OF O2 VIA NC, SATING 93% - 95%, SKIN IS WARM AND DRY, NO SIGNS OF HYPOTHERMIA NOTED TEMPERATURE 97.4F, REPOSITIONED, ALL NEEDS ATTENDED, ALL SAFETY MEASURES IN PLACED, ASPIRATION PRECAUTION OBSERVED, IV ACCESS ON HER RIGHT HAND G#22 INTACT AND PATENT, WILL CONTINUE TO MONITOR ACCORDINGLY.
--- NOTE | 2018-10-18 20:29 | NUR ---
RN CLOSING NOTES PT. IS IN BED A&OX3. BREATHING UNLABORED ON OXYGEN AT 2L/MIN VIA NASAL CANNULA. NO S/S OF ACUTE DISTRESS. PT. HAS A BEAR HUGGER AT BEDSIDE TO SUPPORT LOW TEMPERATURE <96.0 F. IV ACCESS IS INTACT AND PATENT. PT. RECEIVED BONE MARROW BIOPSY, PT. TOLERATED PROCEDURE WELL. BIOPSY SPECIMENS WERE SENT TO PATHOLOGY WITH REQUISITION FORM. 1 UNIT OF PLATELETS WAS GIVEN WITH NO S/S OF COMPLICATIONS. BED IS IN LOWEST, AND LOCKED POSITION. 2 SIDE RAILS UP, AND INSTRUCTED PT. TO USE CALL LIGHT FOR ASSISTANCE. ALL NEEDS MET. ENDORSED REPORT TO NURSE.
[2018-10-18] MEDS: ATORVASTATIN 10 MG TABLET PO SCH (23:13)
[2018-10-19] MEDS: *INSULIN REGULAR(HUMULIN R)HUM 100 UNIT/ML VIAL SQ PRN (00:21)
[2018-10-19] MEDS: INSULIN GLARGINE, 100 UNIT/ML CARTRIDGE SQ SCH (00:23)
[2018-10-19 06:13] LABS: EOSINOPHILS % (AUTO) 0.4 % (0.0-6.0); HEMATOCRIT 23 % (33-45); HEMOGLOBIN 7.5 g/dL (11.5-14.8); LYMPHOCYTES # (AUTO) 0.1 /CMM (0.8-4.8); LYMPHOCYTES % (AUTO) 1.7 % (20.0-44.0); MEAN CORPUSCULAR HGB CONC 33 g/dl (31.0-36.0); MEAN CORPUSCULAR VOLUME 86 fL (82-100); MONOCYTES # (AUTO) 0.3 /CMM (0.1-1.30); MONOCYTES % (AUTO) 6.4 % (2.0-12.0); NEUTROPHILS # (AUTO) 3.6 /CMM (1.8-8.9); NEUTROPHILS % (AUTO) 91.5 % (43.0-81.0); RED BLOOD CELL COUNT(AUTO) 2.64 MIL/uL (4.0-5.2)
[2018-10-19 06:26] LABS: PLATELET COUNT (AUTO) 17 /CMM (150-450)
[2018-10-19 06:35] LABS: CARBON DIOXIDE 23 mmol/L (21-32); CHLORIDE 104 mmol/L (98-107); CREATININE 1.7 mg/dL (0.6-1.3); GLUCOSE 97 mg/dL (74-106); PHOSPHORUS 4.9 mg/dL (2.5-4.9); POTASSIUM 5.2 mmol/L (3.5-5.1); SODIUM SERUM 137 mmol/L (136-145); UREA NITROGEN, BLOOD 46 mg/dL (7-18)
--- NOTE | 2018-10-19 06:48 | NUR ---
RN NOTES RECEIVED LAB RESULT FROM JONATHAN, PLATELET COUNT 17, MADE AWARE.
[2018-10-19] MEDS: INSULIN REGULAR, HUMAN 100 UNIT/ML 3 ML VIAL SQ PRN ×2 (07:01→16:52)
[2018-10-19 07:06] LABS: LYMPHOCYTES % (MANUAL) 3 % (16-48); MONOCYTES % (MANUAL) 7 % (0-11.0); NEUTROPHILS % (MANUAL) 90 (42-76)
--- NOTE | 2018-10-19 07:27 | NUR ---
RN NOTES ALL NEEDS ATTENDED AND MET, WILL ENDORSE FOR CONTINUITY OF CARE.
--- NOTE | 2018-10-19 07:30 | NUR ---
RN MS NOTES PT IN BED, AWAKE, ALERT AND VERBALLY RESPONSIVE, DENIES PAIN, RESPIRATIONS NORMAL, ASSISTED WITH NEEDS, KEPT WARM AND COMFORTABLE IN BED.
[2018-10-19 08:00] VITALS: BP 101/55
[2018-10-19] MEDS: BLOOD SUGAR DIAGNOSTIC 1 EACH STRIP VI SCH ×4 (08:46→22:17)
[2018-10-19] MEDS: REPAGLINIDE 0.5 MG TABLET PO SCH ×3 (08:56→16:40)
[2018-10-19] MEDS: LOSARTAN POTASSIUM 25 MG TABLET PO SCH (08:57)
[2018-10-19] MEDS: PANTOPRAZOLE 40 MG VIAL IV SCH ×2 (08:57→16:25)
[2018-10-19] MEDS ORDERED: FERR325T23 PO (10:20)
--- NOTE | 2018-10-19 10:38 | NUR ---
RN MS NOTES PT SEEN B DR. BHAT, PLAN OF CARE DISCUSSED WITH PT, AWARE OF PT'S LATEST LAB RESULT, DISCHARGE ORDER GIVEN, AWAITING CASE MANAGEMENT FOR FURTHER INSTRUCTIONS.
[2018-10-19] MEDS: DEXTROSE 50%-WATER 50 ML DISP.SYRIN IV PRN ×2 (11:38→22:12)
--- NOTE | 2018-10-19 13:00 | NUR ---
RN MS NOTES PRANDIN NOT ADMINISTRERED, PT HAD AN EPISODE OF HYPOGLYCEMIA, INFORMED, AWAITING FOR ORDERS.
--- NOTE | 2018-10-19 14:04 | NUR ---
RN MS NOTES MD INFORMED OF EPISODE OF HYPOGLYCEMIA, ORDERED TO D/C LANTUS, NOTED AND CARRIED OUT.
[2018-10-19 16:00] VITALS: BP 116/52
[2018-10-19] MEDS: SOD FERRIC GLUC 125 MG in IV NS 0.9% 100 ML IV SCH (17:21)
--- NOTE | 2018-10-19 18:54 | NUR ---
RN MS NOTES PT IN BED, ASLEEP, EASY TO AROUSE, ALERT AND VERBALLY RESPONSIVE, CALL LIGHT WITHIN REACH, ASSISTED WITH MEALS, ASSISTED IN TURNING AND REPOSITIONING, PM MEDS GIVEN, ALL NEEDS ATTENDED.
[2018-10-19 20:00] VITALS: BP 105/50
--- NOTE | 2018-10-19 22:00 | NUR ---
BLOOD SUGAR 40 1 D50 AMP GIVEN @ 2212 BLOOD SUGAR @ 2228 165 AWAKE AND ALERT AND ANSWER SIMPLE QUESTIONS APPLE JUICE ENJOYED
[2018-10-19] MEDS: ATORVASTATIN 10 MG TABLET PO SCH (22:15)
--- NOTE | 2018-10-19 23:25 | NUR ---
CALL PLACED TO THE MD REGARDING NO URINE OUTPUT BLADDER SCAN ATTEMPT BUT FOUND WAS OUT OF ORDER. ORDERS PENDING
--- NOTE | 2018-10-19 23:50 | NUR ---
ORDER TO PLACE JOSEPH TO RELIEVE UA RETENSION GIVEN, JOSEPH CATH WAS ENTERING THE URETHRAL SHE BEGAN TO VOID AROUND THE CATHETER, INSERTED AND OBTAINED 20ML CLEAR GENARO.
--- NOTE | 2018-10-20 06:04 | NUR ---
CLOSING NOTES: AT THE BEGINNING OF THE SHIFT I WAS INFORMED BY THE RN/IT NETWORK ARCHITECT THAT SHE IS USUALLT DRY NOT VOIDING AND YESTERDAY THEY HAD TO STRAIGHT CATH HER IN THE AM. BLADDER SCANNED THE PATIENT AT 23:30 SCANNER NOT WORKING. I GAVE HER JUICE TO DRINK AND SHE SWALLOWED WELL. CALLED THE MD EMERSON AND HE OKAYED THE JOSEPH FOR UA RETENTION. OBTAINED ONLY 200 ML WHEN PLACED, BUT WHEN I INSERTED THE CATHETER SHE SQUIRTED OUT URINE 100 ML AT LEAST. FOR THIS 12 HOURS 400 ML COLLECTED IN THE JOSEPH. AT 2200 HER BLOOD SUGAR WAS 41 SHE WAS SLEEP HARD TO WAKE UP, D50 GLUCOSE GIVEN SLOWLY AND THE SUGAR CAME UP TI 165. DURING THE NIGHT SHE DRANK JUICE 30 ML AT A TIME, SKIN WARM AND DRY EASILY AWAKENED WHEN NAME CALLED.
[2018-10-20] MEDS: BLOOD SUGAR DIAGNOSTIC 1 EACH STRIP VI SCH ×3 (06:36→17:57)
--- NOTE | 2018-10-20 07:30 | NUR ---
RN MS NOTES PT IN BED, SLEEPING COMFORTABLY, EASILY AROUSABLE, NO COMPLAINT OF PAIN OR ANY DISCOMFORT, RESPIRATIONS NORMAL, CALL LIGHT WITHIN REACH, ENCOURAGED INCREASED ORAL INTAKE.
[2018-10-20 08:00] VITALS: BP 112/56
[2018-10-20] MEDS: REPAGLINIDE 0.5 MG TABLET PO SCH (08:26)
[2018-10-20] MEDS: PANTOPRAZOLE 40 MG VIAL IV SCH ×2 (08:27→16:44)
[2018-10-20] MEDS: LOSARTAN POTASSIUM 25 MG TABLET PO SCH (09:00)
--- NOTE | 2018-10-20 14:19 | NUR ---
RN MS NOTES PT IN BED, ASLEEP, EASY TO AROUSE, VERBALLY RESPONSIVE, NO FACIAL GRIMACING OR MOANING, RESPIRATIONS NORMAL, CALL LIGHT WITHIN REACH, SKIN WARM TO TOUCH, KEPT COMFORTABLE.
[2018-10-20] MEDS: SOD FERRIC GLUC 125 MG in IV NS 0.9% 100 ML IV SCH (14:54)
[2018-10-20 16:00] VITALS: BP 105/62
--- NOTE | 2018-10-20 19:45 | NUR ---
RN MS NOTES PT IN BED, RESTING, NO COMPLAINT AT THIS TIME, DISCHARGE ORDER GIVEN BY REINA CENTRAL OFFICE INSTALLER, PT INFORMED, VERBALIZED UNDERSTANDING, DISCHARGE AND MEDICATION INSTRUCTIONS PROVIDED TO PT, VERBALIZED UNDERSTANDING, BELONGINGS ACCOUNTED FOR, PT REFUSED SKIN CHECK AT THE BACK AND BUTTOCKS, REPORT GIVEN TO [facility], PICKED UP BY 2 AMBULANCE PERSONNEL, LEFT VIA GUERNEY IN STABLE CONDITION.
== END 2018-10-20 19:40 | disposition hospice, inpatient (51) | DRG 530 ==
LOC: ER 22:41 → TELE 10-13 01:39 → MED 10-13 08:51
PROVIDERS: ADMIT Internal Medicine; ATTEND Internal Medicine
PROC: 07DR3ZX Extraction of Iliac Bone Marrow, Percutaneous Approach, Diagnostic (ICD-10-PCS; principal; 2018-10-13)
PROC: 30233R1 Transfusion of Nonautologous Platelets into Peripheral Vein, Percutaneous Approach (ICD-10-PCS; 2018-10-13)
DX: C56.9 Malignant neoplasm of unspecified ovary (principal); N17.0 Acute kidney failure with tubular necrosis; E11.00 Type 2 diabetes mellitus with hyperosmolarity without nonketotic hyperglycemic-hyperosmolar coma (NKHHC); K65.9 Peritonitis, unspecified; E87.2 Acidosis; D61.818 Other pancytopenia; C78.6 Secondary malignant neoplasm of retroperitoneum and peritoneum; D69.6 Thrombocytopenia, unspecified; E11.22 Type 2 diabetes mellitus with diabetic chronic kidney disease; E11.65 Type 2 diabetes mellitus with hyperglycemia; E87.1 Hypo-osmolality and hyponatremia; F20.9 Schizophrenia, unspecified; E87.5 Hyperkalemia; D50.9 Iron deficiency anemia, unspecified; F03.90 Unspecified dementia, unspecified severity, without behavioral disturbance, psychotic disturbance, mood disturbance, and anxiety; I12.9 Hypertensive chronic kidney disease with stage 1 through stage 4 chronic kidney disease, or unspecified chronic kidney disease; N18.9 Chronic kidney disease, unspecified; R18.8 Other ascites; Z79.4 Long term (current) use of insulin
CPT/HCPCS: 36415; 36600; 71045-TC; 74181-TC; 80048-TC; 80053-TC; 80076-TC; 82010-TC; 82962-TC; 83605-TC; 83690-TC; 83735-TC; 84100-TC; 85025-TC; 85610-TC; 85730-TC; 86850-TC; 87081-TC; 94799-TC; 97110-TC; 97116-TC; 97530-TC; C9113; G0378; J1170; J1815; J2916; J3475; J3490; J7030; J7040; J7050; P9016-BL; P9034-BL